=== PATIENT | female | born 1995 | race Caucasian/White ===

== ENCOUNTER 2020-08-21 13:43 | Emergency (ER) | payer OTHER, SELFPAY ==
[2020-08-21 14:40] VITALS: BP 105/63; PULSE 77; RESP 16; TEMP 36.3; O2SAT 98; BMI 25.4
--- NOTE | 2020-08-21 14:53 | XR_ITS ---
EXAMINATION: X-RAY RIGHT FOREARM. RIGHT HAND/WRIST. CLINICAL INFORMATION: Status post wrist injury. Now with pain and swelling. COMPARISON: None TECHNIQUE: AP and lateral views of the right forearm were obtained. FINDINGS: RIGHT HAND/WRIST: There is no visible acute fracture, dislocation or subluxation seen. The radial ulnar carpal joint space is maintained. The soft tissues are normal. RIGHT FOREARM: There is no visible acute fracture, dislocation or subluxation seen. The soft tissues are normal. IMPRESSION: Unremarkable right hand/wrist. Unremarkable right forearm.
--- NOTE | 2020-08-21 15:45 | ED.EXTPRO ---
HPI - Extremity Problem General Chief complaint: Extremity Injury, Upper Stated complaint: wrist injury - work related Time Seen by Provider: 08/21/20 14:43 Source: patient Mode of arrival: ambulatory Limitations: no limitations History of Present Illness HPI Narrative: 25-year-old female presenting to the ED with complaints of right hand/ wrist / forearm pain for the past week worse today. She reports her hand twisted backwards when a door was closing. Patient reports she cannot feel her fingers. Denies any other injuries complaints or concerns at this time. Related Data Allergies Allergy/AdvReac Type Severity Reaction Status Date / Time No Known Allergies Allergy Unverified 07/18/20 16:55 [No Known Allergies*] N.K.D.A. Allergy Unknown Uncoded 10/22/15 00:00 Review of Systems Review of Systems: Musculoskeletal : No Myalgias, + joint pain/swelling Skin : No Skin Lesions, No rash Neuro : No Weakness, + Numbness Yes all other systems are reviewed and are negative [facility] Past Medical History Attestation statement: The following information was validated with the patient. Medical History Anemia Social History Social History Alcohol intake: never Smoking Status: Never smoker Use of substances other than those prescribed or required for medical reasons: Yes Substance Use Type: Marijuana Substance Use Frequency: Daily Last Used Substance: Hours (ago) Advance Directives: No Advance Directives Information Provided: No Physical Exam Vital Signs: Vital Signs: Vital Signs Temp Pulse Resp BP Pulse Ox 08/21/20 14:40 97.3 F 77 16 105/63 98 Body Mass Index 25.4 vital signs have been reviewed as normal and appeared to be correct. Blood pressure normal. Heart rate normal. Respiration rate normal. Temperature normal. Oxygen saturation normal. Appearance: Alert. Oriented X3. No acute distress. Head: Normal external exam. Normocephalic. Atraumatic. No Goldstein signs noted. No raccoon eyes noted Eyes: PERRLA. EOMI. Conjunctiva and sclera normal. Eyelids normal. ENT: EAC normal. TM's Normal. Pharynx normal. Uvula midline. Moist mucous membranes. No trismus noted. No drooling noted. No muffled voice noted. Neck: Normal inspection. Neck supple. FROM. No adenopathy. Thyroid Normal. No meningeal signs. No neck mass noted. CVS: Normal heart rate and rhythm. Heart sound normal. No murmurs noted. Pulses normal throughout. Respiratory: No respiratory distress. Painless inspiration. Breath sounds normal. No wheezes/rales/rhonchi noted. Chest nontender. No accessory muscle usage noted or decreased air movement noted. Abdomen: Soft and nontender. Bowel sounds normal in all 4 quadrants. No distention noted. No organomegaly noted. No visible injury noted. Back: No CVA tenderness. Full range of motion noted. Skin: Skin warm and dry. Normal skin color. Normal skin turgor. No rashes/lesions/lacerations noted. Extremities: Right hand ttp at The anatomical snuffbox along with tender to palpation of the radial aspect of the wrist and the distal aspect of the 4 and with mild soft tissue swelling. No obvious deformities noted. Patient has full range of motion of wrist/elbow and all fingers. No lower extremity edema. All other Extremities exhibit normal range of motion and nontender. Neuro: Oriented X 3. No motor deficit. No sensory deficit. Reflexes normal. Course Course Course Narrative: 25-year-old female presenting to the ED with complaints of right hand/ wrist / forearm pain for the past week worse today. She reports her hand twisted backwards when a door was closing. Patient reports she cannot feel her fingers. Denies any other injuries complaints or concerns at this time. - Patient initially said that she did not feel her fingers once I pulled out an 18 gauge needle for sensation she started saying that she was lying about her not feeling her fingers. - Plan: Xray And re-evaluate. Reevaluation(s) Reevaluation #1: X-ray revealed mild soft tissue swelling otherwise no acute processes noted. Therefore will place in a cock-up splint and instructions to return if any new or worsening symptoms and give symptomatic treatment. Patient understands agrees the plan. Time: 15:52 MDM - Extremity (Nontraumatic) Imaging Data right hand/wrist/forearm: Attestation: I personally reviewed and interpreted this imaging study as follows: Radiologist's impression: FINDINGS: RIGHT HAND/WRIST: There is no visible acute fracture, dislocation or subluxation seen. The radial ulnar carpal joint space is maintained. The soft tissues are normal. RIGHT FOREARM: There is no visible acute fracture, dislocation or subluxation seen. The soft tissues are normal. IMPRESSION: Unremarkable right hand/wrist. Unremarkable right forearm.
== END 2020-08-21 16:40 | disposition home or self-care (01) ==
PROVIDERS: Emergency Provider Emergency Medicine; PCP Internal Medicine
DX: S63.91XA Sprain of unspecified part of right wrist and hand, initial encounter (principal); X50.1XXA Overexertion from prolonged static or awkward postures, initial encounter; Y93.89 Activity, other specified; Y92.9 Unspecified place or not applicable; Y99.0 Civilian activity done for income or pay
CPT/HCPCS: 73090; 73110; 73130; 99283; 99284

== ENCOUNTER 2020-09-07 09:13 | Emergency (ER) | payer OTHER, SELFPAY ==
--- NOTE | 2020-09-07 09:40 | ED.HA ---
HPI - Headache General Chief Complaint: Headache Stated Complaint: headache Time Seen by Provider: 09/07/20 09:40 Source: patient Mode of arrival: ambulatory Limitations: no limitations History of Present Illness MD elicited complaint: headache and migraine Pertinent past history: migraines Onset (ago): hour(s) (few hours upon waking) Onset description: gradually Location: right, facial and retro-orbital Severity: similar to previous episodes Quality & Timing: throbbing Exacerbating factors: light and noise Relieving factors: rest and dark room Context: occurred at rest Associated symptoms: nausea and photophobia Treatments prior to arrival: none Related Data Previous Rx's Medication Instructions Recorded naproxen 500 mg PO BID PRN #10 tab 08/21/20 oxycodone-acetaminophen [Percocet] 1 tab PO Q6H PRN #10 tab 08/21/20 fvdtgrqjkw-dabpjmnhvogvj-zrdl 1 tab PO Q6H PRN #20 tab 09/07/20 cyclobenzaprine 10 mg PO TID PRN #14 tab 09/07/20 ondansetron 4 mg PO Q8H PRN #20 tab 09/07/20 Allergies Allergy/AdvReac Type Severity Reaction Status Date / Time No Known Allergies Allergy Verified 09/07/20 09:47 [No Known Allergies*] Review of Systems Review of Systems: Constitutional : No Fever, No Chills, No Fatigue ENT/Mouth : No sore throat, No Rhinorrhea, no neck pain Eyes: No Eye Pain, No Swelling, No Redness, positive photophobia Cardiovascular : No Chest Pain, No SOB, No Dyspnea on Exertion Respiratory : No Cough, No Sputum Gastrointestinal : pos Nausea, No Vomiting, No Diarrhea, No abdominal Pain Genitourinary : No Dysuria, No Urinary Frequency, No Hematuria, Musculoskeletal : No joint pain, No Myalgias, No Joint Swelling Skin : No Skin Lesions, No rash Neuro : No Weakness, No Numbness, No Dizziness, positive Headache Psych : No Anxiety/Panic, No Depression Heme/Lymph: No Bruising, No Bleeding,No Lymphadenopathy Endocrine : No Polyuria, No Polydipsia All other systems reviewed and are negative [facility] Past Medical History Medical History Anemia Migraines Social History Social History Alcohol intake: current Alcohol intake frequency: does not drink Alcohol type: beer and wine Smoking Status: Never smoker Substance Use Type: Marijuana Advance Directives: No Advance Directives Information Provided: No Physical Exam Vital Signs: Vital Signs: Last Vital Signs Temp 98.1 F 09/07/20 09:43 Pulse 67 09/07/20 09:43 Resp 16 09/07/20 09:43 BP 119/86 09/07/20 09:43 Pulse Ox 100 09/07/20 09:43 Body Mass Index 25.4 Appearance: Alert. Oriented X3. No acute distress. Eyes: Pupils equal, round and reactive to light. + photophobia ENT: Pharynx normal. Ears normal, no sinus ttp Neck: Normal inspection. Neck supple. no meningeal signs CVS: Normal heart rate and rhythm. Pulses normal. Respiratory: No respiratory distress. Breath sounds normal. Abdomen: Soft and nontender. Skin: Skin warm and dry. Normal skin color. Normal skin turgor. Extremities: No lower extremity edema. No calf ttp Neuro: Oriented X 3. No motor deficit. No sensory deficit. Course Course Course Narrative: patient feels better, stable for DC MDM - Headache MDM Narrative Medical decision making narrative: 25 yo female afebrile, no AC therapy, no meningeal signs - hx of heaches here with same presentation, gradual onset doubt SAH/[employer] infection, PO medications, dispo per results and findings. Lab Data Result diagrams: 09/07/20 10:20 Discharge Plan Discharge Clinical Impression: Migraine Qualifiers: Migraine type: without aura Patient Disposition: Home, Self-Care Instructions: Migraine Headache (ED) Additional Instructions: return to ED for any worsening symptoms or concerns Prescriptions: New cyclobenzaprine 10 mg tablet 10 mg PO TID PRN (Reason: muscle spasm) Qty: 14 RF: 0 lgwpacasss-zbrceveqqfimq-tjbi 50-325-40 mg tablet 1 tab PO Q6H PRN (Reason: pain) Qty: 20 RF: 0 ondansetron 4 mg tablet,disintegrating 4 mg PO Q8H PRN (Reason: nausea and vomiting) Qty: 20 RF: 0 No Action oxycodone-acetaminophen [Percocet] 5-325 mg tablet 1 tab PO Q6H PRN (Reason: pain) Qty: 10 RF: 0 naproxen 500 mg tablet 500 mg PO BID PRN (Reason: pain) Qty: 10 RF: 0 Referrals: Balbina Loera MD [Primary Care Provider] - 2 days (if this continues and does not improve)
[2020-09-07 09:43] VITALS: BP 119/86; PULSE 67; RESP 16; TEMP 36.7; O2SAT 100; BMI 25.4
[2020-09-07] MEDS: Cyclobenzaprine HCl 10 MG TABLET PO (09:51)
[2020-09-07 10:44] LABS: Hematocrit 36.7 % (37-47); Hemoglobin 11.7 g/dl (12.0-16.0); Mean Corpuscular HGB Conc 31.9 g/dl (31.0-35.0); Mean Corpuscular Hemoglobin 27.9 pg (27.0-33.0); Mean Corpuscular Volume 87.4 fL (80-98); Mean Platelet Volume 9.5 fL (9.4-12.3); Platelet Count 255 X10*3/uL (160-400); Red Cell Distribution Width 14.3 % (11.0-16.0); White Blood Count 6.5 X10*3/uL (4.8-10.8)
== END 2020-09-07 11:23 | disposition home or self-care (01) ==
PROVIDERS: Emergency Provider Emergency Medicine; PCP Internal Medicine
DX: G43.009 Migraine without aura, not intractable, without status migrainosus (principal); F12.90 Cannabis use, unspecified, uncomplicated; Z79.899 Other long term (current) drug therapy
CPT/HCPCS: 36415; 85027; 99283; 99284

== ENCOUNTER 2020-09-22 12:48 | Emergency (ER) | payer OTHER, SELFPAY ==
[2020-09-22 13:26] VITALS: PULSE 70; RESP 16; TEMP 36.7; O2SAT 100; BMI 25.8
--- NOTE | 2020-09-22 13:26 | ED.GENADULT ---
HPI - General Adult General Chief complaint: General Medical Stated complaint: sore throat Time Seen by Provider: 09/22/20 13:25 Source: patient Mode of arrival: ambulatory Limitations: no limitations History of Present Illness HPI narrative: Here for sore throat/nasal congestion requesting COVID test. Onset (ago): day(s) (1) Severity: mild Treatments prior to arrival: none Related Data Previous Rx's Medication Instructions Recorded naproxen 500 mg PO BID PRN #10 tab 08/21/20 oxycodone-acetaminophen [Percocet] 1 tab PO Q6H PRN #10 tab 08/21/20 ovuuxwkzpk-wpuhkwmvlslgi-qchv 1 tab PO Q6H PRN #20 tab 09/07/20 cyclobenzaprine 10 mg PO TID PRN #14 tab 09/07/20 ondansetron 4 mg PO Q8H PRN #20 tab 09/07/20 Allergies Allergy/AdvReac Type Severity Reaction Status Date / Time No Known Allergies Allergy Verified 09/07/20 09:47 [No Known Allergies*] Review of Systems Review of Systems: Constitutional: No Weight loss, No Fever, No Chills, No Night Sweats, No Fatigue, No Malaise ENT/Mouth: No Hearing loss, No Ear Pain, + Nasal Congestion, No Sinus Pain, No Hoarseness, + sore throat, No Rhinorrhea, No Swallowing Difficulty Eyes: No Eye Pain, No Swelling, No Redness, No Foreign Body, No Discharge, No Vision Changes Cardiovascular: No Chest Pain, No SOB, No Dyspnea on Exertion, No Orthopnea, No Edema, No Palpitations Respiratory: No Cough, No Sputum, No Wheezing, No Smoke Exposure, No Dyspnea Gastrointestinal: No Nausea, No Vomiting, No Diarrhea, No Constipation, No abdominal Pain, No Hematochezia, No Melena Genitourinary: no irregular bleeding, No Dysuria, No Urinary Frequency, No Hematuria, No Urinary Incontinence, No Urgency, No Flank Pain, No Urinary Musculoskeletal: No joint pain, No Myalgias, No Joint Swelling Skin: No Skin Lesions, No rash Neuro: No Weakness, No Numbness, No Paresthesias, No Loss of Consciousness, No Dizziness, No Headache Psych: No Anxiety/Panic, No Depression, No SI/HI/AH/VH, No Social Issues Heme/Lymph: No Bruising, No Bleeding,No Lymphadenopathy Endocrine: No Polyuria, No Polydipsia, No Temperature Intolerance Yes all other systems are reviewed and are negative [facility] Past Medical History Medical History Anemia Migraines Social History Social History Alcohol intake: current Alcohol intake frequency: does not drink Alcohol type: beer and wine Smoking Status: Never smoker Substance Use Type: Marijuana Advance Directives: No Advance Directives Information Provided: Yes Physical Exam Vital Signs: Reviewed Const: General: cooperative and healthy appearing; No acute distress or intoxicated appearing Nutritional Appearance: average body habitus Orientation/consciousness: patient oriented x3 HENMT: Head: Yes normal to inspection Ears: hearing grossly normal bilaterally Eyes: General: appearance normal, both eyes and all related structures Visual Snowden: normal visual snowden by confrontation Neck: Neck: Yes normal visual inspection, No positive Brudzinski's sign, No positive Kernig's sign and No tender Thyroid: Thyroid normal Chest: Chest palpation & inspection: normal inspection of the chest Resp: Effort & Inspection: normal respiratory effort Auscultation: clear to auscultation bilaterally Cardio: Jugular venous distension: no JVD GI: Inspection: Yes normal to inspection Percussion: Yes normal to percussion Auscultation: normal bowel sounds : General: Yes no CVA tenderness Back/Spine/Pelvis: Back: no CVA tenderness Neuro: General: patient oriented x3 Extrem: General: Yes normal to inspection Course Course Course Narrative: Well non toxic. COVID/ rapid strep with plan for d/c with home care/ return and f/u. Work note provided. Discharge Plan Discharge Clinical Impression: Viral syndrome Patient Disposition: Home, Self-Care Instructions: Viral Syndrome (ED) Additional Instructions: Will call you with the strep results The COVID results will take up to 3-4 days will call you with a negative or positive result Remain on work until given negative results in at least 3 days symptom-free Return if any concerns or worsening symptoms Scheduled well visit with her primary care doctor via phone visit in 3-4 days Thank you Prescriptions: No Action oxycodone-acetaminophen [Percocet] 5-325 mg tablet 1 tab PO Q6H PRN (Reason: pain) Qty: 10 RF: 0 naproxen 500 mg tablet 500 mg PO BID PRN (Reason: pain) Qty: 10 RF: 0 cyclobenzaprine 10 mg tablet 10 mg PO TID PRN (Reason: muscle spasm) Qty: 14 RF: 0 nggxyvmwkj-kfiduttkcrzph-pzra 50-325-40 mg tablet 1 tab PO Q6H PRN (Reason: pain) Qty: 20 RF: 0 ondansetron 4 mg tablet,disintegrating 4 mg PO Q8H PRN (Reason: nausea and vomiting) Qty: 20 RF: 0 Referrals: Balbina Loera MD [Primary Care Provider] - 3 days (Phone visit) Stand Alone Forms: Work/School Release
== END 2020-09-22 13:55 | disposition home or self-care (01) ==
PROVIDERS: Nurse Practitioner Primary Care; Emergency Provider Emergency Medicine; PCP Internal Medicine
DX: B34.9 Viral infection, unspecified (principal); J02.8 Acute pharyngitis due to other specified organisms; F12.90 Cannabis use, unspecified, uncomplicated; Z20.828 Contact with and (suspected) exposure to other viral communicable diseases; Z79.899 Other long term (current) drug therapy
CPT/HCPCS: 87071; 87880; 99283; U0003

== ENCOUNTER 2020-11-20 11:12 | Emergency (ER) | payer OTHER, SELFPAY ==
[2020-11-20 11:25] VITALS: BP 108/66; PULSE 70; RESP 18; TEMP 36.6; O2SAT 99; BMI 25.4
--- NOTE | 2020-11-20 11:33 | ECG_ITS ---
Test Reason : GENERAL MEDICAL Blood Pressure : / mmHG Vent. Rate : 064 BPM Atrial Rate : 064 BPM P-R Int : 108 ms QRS Dur : 072 ms QT Int : 426 ms P-R-T Axes : 017 071 029 degrees QTc Int : 439 ms Sinus rhythm with short AK Otherwise normal ECG When compared with ECG of 26-APR-2014 19:06, No significant change was found Referred By: Jamal Guadalupe Electronically Signed By:DANITA HANNAH
--- NOTE | 2020-11-20 11:33 | XR_ITS ---
EXAMINATION: XR CHEST CLINICAL INFORMATION: Chest pain COMPARISON: None TECHNIQUE: Frontal view of the chest was obtained. FINDINGS: The lungs are well-expanded with mild increased bilateral interstitial markings but no confluent infiltrate or pleural effusion. Heart size and pulmonary vascularity is normal. No gross bony abnormality seen. XR/XR chest 1V IMPRESSION: Bilateral prominence of interstitial markings, nonspecific in this time. No acute consolidation.
[2020-11-20 11:49] LABS: Glucose Urine UA NEG (NEG); Leukocyte Esterase Urine NEG (NEG); Nitrite Urine NEG (NEG); Urine Blood 1+ (NEG); Urine Ketones NEG (NEG); Urine Protein NEG (NEG-TRACE)
[2020-11-20 11:50] LABS: Appearance Urine CLEAR; Color Urine YELLOW
[2020-11-20 11:51] LABS: UPreg QC Valid YES; Urine Pregnancy NEGATIVE (NEGATIVE)
[2020-11-20 11:58] LABS: Squamous Epithelial Cell Urine 1+ /LPF; WBC Urine 0-2 /HPF (0-4)
--- NOTE | 2020-11-20 12:51 | ED_ITS ---
HPI - Chest Pain General Chief Complaint: Arrhythmia/Palpitations Stated Complaint: palpitations Time Seen by Provider: 11/20/20 11:32 Source: patient Mode of arrival: ambulatory Limitations: no limitations History of Present Illness HPI narrative: 25-year-old female who reports history of anxiety otherwise denies significant past medical history presents with complaint of chest pain states she has had chest pain ongoing since yesterday states she gets this in the setting of stress and anxiety she has had some increased social stressors at home she has been having more arguments with mom. She denies any suicidal homicidal ideations. Denies any illicit drug use. States she has required pharmacological therapy in the past for her anxiety she does not recall what and she has not been on any medications long-term. No recent travel, no recent sick contacts, no control use. MD complaint: chest discomfort Prior episodes: Yes Onset: other (During emotional upset) Pain location: substernal Pain radiation: none Quality: tightness Relieving factors: nothing Treatment prior to arrival: none Related Data Previous Rx's Medication Instructions Recorded naproxen 500 mg PO BID PRN #10 tab 08/21/20 oxycodone-acetaminophen [Percocet] 1 tab PO Q6H PRN #10 tab 08/21/20 opgmtfagro-bdgdzmywombwa-fvjg 1 tab PO Q6H PRN #20 tab 09/07/20 cyclobenzaprine 10 mg PO TID PRN #14 tab 09/07/20 ondansetron 4 mg PO Q8H PRN #20 tab 09/07/20 hydroxyzine HCl 25 mg PO BID PRN #14 tab 11/20/20 Allergies Allergy/AdvReac Type Severity Reaction Status Date / Time No Known Allergies Allergy Verified 09/07/20 09:47 [No Known Allergies*] Review of Systems Review of Systems: Constitutional: No Weight loss, No Fever, No Chills, No Night Sweats, No Fatigue, No Malaise ENT/Mouth: No Hearing loss, No Ear Pain, No Nasal Congestion, No Sinus Pain, No Hoarseness, No sore throat, No Rhinorrhea, No Swallowing Difficulty Eyes: No Eye Pain, No Swelling, No Redness, No Foreign Body, No Discharge, No Vision Changes Cardiovascular: No Chest Pain, No SOB, No Dyspnea on Exertion, No Orthopnea, No Edema, No Palpitations Respiratory: No Cough, No Sputum, No Wheezing, No Smoke Exposure, No Dyspnea Gastrointestinal: No Nausea, No Vomiting, No Diarrhea, No Constipation, No abdominal Pain, No Hematochezia, No Melena Genitourinary: no irregular bleeding, No Dysuria, No Urinary Frequency, No Hematuria, No Urinary Incontinence, No Urgency, No Flank Pain, No Urinary Flow Changes, No Hesitancy Musculoskeletal: No joint pain, No Myalgias, No Joint Swelling Skin: No Skin Lesions, No rash Neuro: No Weakness, No Numbness, No Paresthesias, No Loss of Consciousness, No Dizziness, No Headache Psych: + Anxiety/Panic, No Depression, No SI/HI/AH/VH, No Social Issues Heme/Lymph: No Bruising, No Bleeding,No Lymphadenopathy Endocrine: No Polyuria, No Polydipsia, No Temperature Intolerance Yes all other systems are reviewed and are negative [facility] Past Medical History Medical History Anemia Migraines Social History Social History Alcohol intake: current Alcohol intake frequency: does not drink Alcohol type: beer and wine Smoking Status: Never smoker Substance Use Type: Marijuana Advance Directives: No Advance Directives Information Provided: No Physical Exam Vital Signs: Vital Signs: Last Vital Signs Temp 98 F 11/20/20 11:25 Pulse 70 11/20/20 11:25 Resp 18 11/20/20 11:25 BP 108/66 11/20/20 11:25 Pulse Ox 99 11/20/20 11:25 Body Mass Index 25.4 Reviewed Const: General: cooperative and healthy appearing; No acute distress or intoxicated appearing Nutritional Appearance: average body habitus Orientation/consciousness: patient oriented x3 HENMT: Head: Yes normal to inspection Ears: hearing grossly normal bilaterally Eyes: General: appearance normal, both eyes and all related structures Visual Snowden: normal visual snowden by confrontation Neck: Neck: Yes normal visual inspection, No positive Brudzinski's sign, No positive Kernig's sign and No tender Thyroid: Thyroid normal Chest: Chest palpation & inspection: normal inspection of the chest Resp: Effort & Inspection: normal respiratory effort Auscultation: clear to auscultation bilaterally Cardio: Jugular venous distension: no JVD Rhythm: regular rhythm Heart sounds: S1 normal heart sound present and S2 normal heart sound present GI: Inspection: Yes normal to inspection Percussion: Yes normal to percussion Auscultation: normal bowel sounds : General: Yes no CVA tenderness Back/Spine/Pelvis: Back: no CVA tenderness Skin: General skin exam: no rashes or lesions noted Neuro: General: patient oriented x3 Extrem: General: Yes normal to inspection Course Course Course Narrative: RN informed me the patient is refusing blood work as she has a needle phobia. I went over to discuss with the patient plans and findings she was initially agreeable to having her blood work given that she is complaining of this chest pain in the setting of anxiety though my suspicion for ca rdiopulmonary disease is low given her symptoms must be ruled out she was again and she is agreeable and after I left the bedside returned she did not want she want to leave. Patient wants leave against medical advise. A MA sign. MDM - Chest Pain Differential Diagnosis Differential diagnosis: Likely stable angina, atypical chest pain, costochondritis and chest pain; Unlikely fracture of rib, pneumothorax, unstable angina pectoris, st elevation myocardial infarction and biliary colic Medical Records Data Attestation: I reviewed the patient's medical records. Lab Data Attestation: I reviewed the patient's lab results. Labs: Lab Results 11/20/20 Range/Units 11:38 Urine Color YELLOW Urine Appearance CLEAR Urine pH 6.0 (5.0-8.0) Ur Specific [place] 1.020 (1.005-1.025) Urine Protein NEG (NEG-TRACE) MG/DL Urine Glucose (UA) NEG (NEG) MG/DL Urine Ketones NEG (NEG) MG/DL Urine Blood 1+ H (NEG) Urine Nitrite NEG (NEG) Ur Leukocyte Esterase NEG (NEG) Urine RBC 1-4 (0) /HPF Urine WBC 0-2 (0-4) /HPF Ur Squamous Epith Cells 1+ /LPF Urine Bacteria NONE /LPF Urine Test NEGATIVE (NEGATIVE) Imaging Data Chest x-ray: Radiologist's impression: [address] [id number] ReportSigned Patient: Poppy Wright#: [id number]: 1995Acct:[id number]/Sex: 25 / FADM Date: 11/20/20Loc: EDAttending Dr: Ordering Physician: Jamal Guadalupe NP Date of Service: 11/20/20 Procedure(s): XR chest 1V Accession Number(s): [id number] cc: Jamal Guadalupe ORDER ADMINISTRATOR~ EXAMINATION: XR CHEST CLINICAL INFORMATION: Chest pain COMPARISON: None TECHNIQUE: Frontal view of the chest was obtained. FINDINGS: The lungs are well-expanded with mild increased bilateral interstitial markings but no confluent infiltrate or pleural effusion. Heart size and pulmonary vascularity is normal. No gross bony abnormality seen. XR/XR chest 1V IMPRESSION: Bilateral prominence of interstitial markings, nonspecific in this time. No acute consolidation. 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 ECG Data ECG #1: Interpretation: Sinus rhythm with short RI Otherwise normal ECG When compared with ECG of 26-APR-2014 19:06, No significant change was found Discharge Plan Discharge Clinical Impression: Anxiety, Chest pain Patient Disposition: Left Against Medical Advice Instructions: Chest Pain (ED), Anxiety (ED) Prescriptions: New hydroxyzine HCl 25 mg tablet 25 mg PO BID PRN (Reason: anxiety) Qty: 14 RF: 0 No Action oxycodone-acetaminophen [Percocet] 5-325 mg tablet 1 tab PO Q6H PRN (Reason: pain) Qty: 10 RF: 0 naproxen 500 mg tablet 500 mg PO BID PRN (Reason: pain) Qty: 10 RF: 0 cyclobenzaprine 10 mg tablet 10 mg PO TID PRN (Reason: muscle spasm) Qty: 14 RF: 0 lkyyehuzob-wuchnjnhsemww-kwpi 50-325-40 mg tablet 1 tab PO Q6H PRN (Reason: pain) Qty: 20 RF: 0 ondansetron 4 mg tablet,disintegrating 4 mg PO Q8H PRN (Reason: nausea and vomiting) Qty: 20 RF: 0 Stand Alone Forms: Against Medical Advice Interventions: ED Discharge Assessment Last Done: 11/20/20 14:12 Discharge Date/Time: 11/20/20 14:13
== END 2020-11-20 14:13 | disposition left against medical advice (07) ==
PROVIDERS: Nurse Practitioner Primary Care; Emergency Provider Emergency Medicine; PCP Internal Medicine
DX: R07.9 Chest pain, unspecified (principal); R00.2 Palpitations; F41.9 Anxiety disorder, unspecified; F43.0 Acute stress reaction; Z63.8 Other specified problems related to primary support group; Z79.899 Other long term (current) drug therapy
CPT/HCPCS: 71045; 81001; 81025; 93005; 99283

== ENCOUNTER 2021-04-08 13:28 | Emergency (ER) | payer OTHER, SELFPAY ==
[2021-04-08 13:42] VITALS: BP 96/64; PULSE 55; RESP 18; TEMP 36.2; O2SAT 95; BMI 56.0
--- NOTE | 2021-04-08 14:47 | ED.LOWEXIN ---
HPI - Extremity Injury (Lower) General Chief Complaint: Extremity Injury, Lower Stated Complaint: R LEG PAIN Time Seen by Provider: 04/08/21 13:50 Source: patient Mode of arrival: ambulatory History of Present Illness HPI Narrative: 26-year-old female with a past medical history of anemia, migraines, presenting to the ED complaining of numb left hamstring pain radiating to the thigh since yesterday s/p doing Thomas. Reports feels like a muscle strain/pulling/tearing. Denies falls/direct trauma, numbness, tingling, urinary incontinence/retention, fever Related Data Previous Rx's Medication Instructions Recorded naproxen 500 mg PO BID PRN #10 tab 08/21/20 oxycodone-acetaminophen [Percocet] 1 tab PO Q6H PRN #10 tab 08/21/20 [id number]-elzclwdxcpcvl-wwvd 1 tab PO Q6H PRN #20 tab 09/07/20 cyclobenzaprine 10 mg PO TID PRN #14 tab 09/07/20 ondansetron 4 mg PO Q8H PRN #20 tab 09/07/20 hydroxyzine HCl 25 mg PO BID PRN #14 tab 11/20/20 acetaminophen [Tylenol Extra 500 mg PO Q6H PRN #20 tab 04/08/21 Strength] cyclobenzaprine 5 mg PO Q8H PRN 5 Days #14 tab 04/08/21 lidocaine [Lidoderm] 1 patch TOPICAL DAILY PRN #30 ea 04/08/21 MDD remove after 12 hours naproxen 500 mg PO BID PRN 10 Days #20 tab 04/08/21 Allergies Allergy/AdvReac Type Severity Reaction Status Date / Time No Known Allergies Allergy Verified 09/07/20 09:47 [No Known Allergies*] Review of Systems Review of Systems: Constitutional: No Fever, No Chills Gastrointestinal: No Abdominal pain Genitourinary: No Urinary Incontinence/retention Musculoskeletal: +joint pain, No Myalgias, No Joint Swelling Skin: No Skin Lesions, No rash Neuro: No Weakness, No Numbness, No Paresthesias Yes all other systems are reviewed and are negative [facility] Past Medical History Attestation statement: The following information was validated with the patient. Medical History Anemia Migraines Social History Social History Alcohol intake: current Alcohol intake frequency: does not drink Alcohol type: beer and wine Substance Use Type: Marijuana Advance Directives: Yes Advance Directives Information Provided: Yes Advance Directives on File: No Patient : No Physical Exam Vital Signs: Vital Signs: Last Vital Signs Temp 97.2 F 04/08/21 13:42 Pulse 55 04/08/21 13:42 Resp 18 04/08/21 13:42 BP 96/64 04/08/21 13:42 Pulse Ox 95 04/08/21 13:42 Body Mass Index 56.0 Const: General: cooperative, healthy appearing and no acute distress Orientation/consciousness: patient oriented x3 Limitations: no limitations HENMT: Head: Yes normal to inspection Ears: hearing grossly normal bilaterally General nose exam: Normal external nose present Face and sinus: Yes normal facial exam Eyes: General: appearance normal, both eyes and all related structures EOM: EOMs intact bilaterally Neck: Neck: Yes normal visual inspection and Yes no meningeal signs Resp: Effort & Inspection: normal respiratory effort Cardio: Rate: regular rate GI: Inspection: Yes normal to inspection Palpation (GI): Soft to palpation, nontender, no guarding and not rigid Skin: Rashes: no rashes Wounds: no wounds Neuro: General: patient oriented x3 and no meningeal signs Gait exam (Neuro): Normal gait present Extrem: Other: Left hamstring with tenderness to palpation. No appreciable deformity. Pain with passive and active ROM. Neurovascularly intact distally. FROM intact General: Yes normal to inspection MDM - Extremity Injury (Lower) MDM Narrative Medical decision making narrative: 26-year-old female with a past medical history of anemia, migraines, presenting to the ED complaining of numb left hamstring pain radiating to the thigh since yesterday s/p doing Thomas. On exam VSS, NAD, well appearing, physical exam as above, consistent with hamstring strain/MSK pain. Discharge Plan Discharge Clinical Impression: Hamstring strain Qualifiers: Encounter type: initial encounter Laterality: left Qualified Code(s): S76.312A - Strain of muscle, fascia and tendon of the posterior muscle group at thigh level, left thigh, initial encounter Patient Disposition: Home, Self-Care Instructions: Hamstring Injury (ED) Additional Instructions: Your pain is likely musculoskeletal Flexeril is a muscle relaxer, take at night as it makes you drowsy, do not drive, drink alcohol, or operate machinery while taking it Naproxen as an anti-inflammatory / pain medication, take with food Lidoderm patches are numbing patches, apply to painful area In addition take Tylenol at home If symptoms persist or worsen, pain becomes unbearable, you developed urinary retention or incontinence, or weakness return to the ED Prescriptions: New acetaminophen [Tylenol Extra Strength] 500 mg tablet 500 mg PO Q6H PRN (Reason: pain or fever) Qty: 20 RF: 0 lidocaine [Lidoderm] 5 % adhesive patch,medicated 1 patch topical DAILY MDD remove after 12 hours PRN (Reason: pain) Qty: 30 RF: 0 naproxen 500 mg tablet 500 mg PO BID PRN (Reason: pain) 10 Days Qty: 20 RF: 0 cyclobenzaprine 5 mg tablet 5 mg PO Q8H PRN (Reason: pain (scale score 7-10)) 5 Days Qty: 14 RF: 0 No Action oxycodone-acetaminophen [Percocet] 5-325 mg tablet 1 tab PO Q6H PRN (Reason: pain) Qty: 10 RF: 0 naproxen 500 mg tablet 500 mg PO BID PRN (Reason: pain) Qty: 10 RF: 0 cyclobenzaprine 10 mg tablet 10 mg PO TID PRN (Reason: muscle spasm) Qty: 14 RF: 0 jsyqqqhjob-rkoctgvuzxwhv-xxnb 50-325-40 mg tablet 1 tab PO Q6H PRN (Reason: pain) Qty: 20 RF: 0 ondansetron 4 mg tablet,disintegrating 4 mg PO Q8H PRN (Reason: nausea and vomiting) Qty: 20 RF: 0 hydroxyzine HCl 25 mg tablet 25 mg PO BID PRN (Reason: anxiety) Qty: 14 RF: 0 Referrals: Balbina Loera MD [Primary Care Provider] - 2 days
== END 2021-04-08 14:58 | disposition home or self-care (01) ==
PROVIDERS: Emergency Provider Emergency Medicine; PCP Internal Medicine
DX: S76.312A Strain of muscle, fascia and tendon of the posterior muscle group at thigh level, left thigh, initial encounter (principal); X50.0XXA Overexertion from strenuous movement or load, initial encounter; Y93.B9 Activity, other involving muscle strengthening exercises; Y92.9 Unspecified place or not applicable; Y99.8 Other external cause status
CPT/HCPCS: 99283

== ENCOUNTER → 2021-05-22 14:24 | Outpatient (BNVA) | payer OTHER, SELFPAY | PROVIDERS: PCP Internal Medicine; Visit Provider Advanced Practice Midwife | DX: Z30.431 Encounter for routine checking of intrauterine contraceptive device (principal); R10.2 Pelvic and perineal pain | CPT/HCPCS: 99212 ==

== ENCOUNTER 2021-06-16 10:20 | Emergency (ER) | payer OTHER, SELFPAY ==
--- NOTE | ~2021-06-16 | XR_ITS ---
EXAMINATION: XR SHOULDER, LEFT CLINICAL INFORMATION: Pain. COMPARISON: None TECHNIQUE: AP, Grashey, and scapular Y views of the left shoulder. FINDINGS: The bones and soft tissues are normal. No fracture. Glenohumeral and acromioclavicular alignment is anatomic with normal joint space. No abnormal soft tissue calcifications. XR/XR shoulder LT min 2V IMPRESSION: Unremarkable examination.
[2021-06-16 10:57] VITALS: BP 102/65; PULSE 60; RESP 16; TEMP 36.7; O2SAT 99; BMI 25.4
--- NOTE | 2021-06-16 17:32 | ED.EXTPRO ---
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 but is not sure, there is no numbness weakness or tingling there is no swelling there is a no neck pain no back pain Related Data Previous Rx's Medication Instructions Recorded acetaminophen 500 mg tablet 500 mg PO Q6H PRN #20 tab 04/08/21 (Tylenol Extra Strength) Allergies Allergy/AdvReac Type Severity Reaction Status Date / Time No Known Allergies Allergy Verified 05/22/21 14:41 [No Known Allergies*] Review of Systems Review of Systems: Positive for left shoulder pain Negatives are no fever no chills no dizziness no weakness no fainting no feeling faint no headache no neck pain no numbness weakness or tingling no chest pain no back pain no skin rash Yes all other systems are reviewed and are negative PMFSH Past Medical History Source: nursing notes reviewed Medical History Anemia Migraines Social History Social History (Updated 05/22/21 @ 14:46 by Fadumo Travis CMA) Alcohol intake: current Alcohol intake frequency: does not drink Alcohol type: beer and wine Substance Use Type: Marijuana Advance Directives: No Advance Directives Information Provided: No Patient : No Gender identity: female Physical Exam Vital Signs: Vital Signs: Last Vital Signs Temp 98.1 F 06/16/21 10:57 Pulse 60 06/16/21 10:57 Resp 16 06/16/21 10:57 BP 102/65 06/16/21 10:57 Pulse Ox 99 06/16/21 10:57 Body Mass Index 25.4 General appearance no acute distress Head is normocephalic atraumatic Neck is supple and nontender The respiratory no distress The extremities the left shoulder had anterior tenderness as well as trapeze tenderness, was normal in appearance there is no redness no warmth no swelling it is neurovascular intact distal range of motion was somewhat limited by pain with mild limited on extension abduction and external rotation Other extremities normal Skin no rash Neuro no focal motor or sensory deficit Course Course Course Narrative: Left shoulder x-ray was negative Patient most likely has muscle strain whether from work or elsewhere and is discharged to follow with orthopedics as needed Discharge Plan Discharge Clinical Impression: Left shoulder strain Patient Disposition: Home, Self-Care Additional Instructions: Your x-ray was negative and most likely of strained muscles in the area of her left shoulder Return any time any worse condition or concern You could use Tylenol or Motrin as needed Prescriptions: No Action acetaminophen [Tylenol Extra Strength] 500 mg tablet 500 mg PO Q6H PRN (Reason: pain or fever) Qty: 20 RF: 0 Referrals: Mitchel Leiva MD [Physician] - 2 days (Left shoulder pain) Stand Alone Forms: Work/School Release Interventions: ED Discharge Assessment Last Done: 06/16/21 12:20 Discharge Date/Time: 06/16/21 12:21
== END 2021-06-16 12:21 | disposition home or self-care (01) ==
PROVIDERS: Emergency Provider Internal Medicine; PCP Internal Medicine
DX: S46.912A Strain of unspecified muscle, fascia and tendon at shoulder and upper arm level, left arm, initial encounter (principal); X50.0XXA Overexertion from strenuous movement or load, initial encounter; Y93.89 Activity, other specified; Y92.511 Restaurant or cafe as the place of occurrence of the external cause; Y99.0 Civilian activity done for income or pay
CPT/HCPCS: 73030; 99283

== ENCOUNTER → 2021-06-17 10:23 | Outpatient (BNVA) | payer OTHER, SELFPAY | PROVIDERS: PCP Internal Medicine; Visit Provider Advanced Practice Midwife ==

== ENCOUNTER 2021-06-26 14:06 | Outpatient (REF) | payer OTHER, SELFPAY ==
[2021-06-26 14:53] LABS: COVID-19 Test Negative (Negative); IDNOW Serial# 9DD0AD1C
== END 2021-06-26 14:07 | disposition home or self-care (01) ==
LOC: HO.LAB 14:06
PROVIDERS: PCP Internal Medicine; Visit Provider Internal Medicine
DX: Z20.822 Contact with and (suspected) exposure to COVID-19 (principal)
CPT/HCPCS: 36415; 87635; C9803

== ENCOUNTER → 2021-09-01 10:12 | Outpatient (BNVA) | payer OTHER, SELFPAY | PROVIDERS: PCP Internal Medicine; Visit Provider Advanced Practice Midwife | DX: Z30.09 Encounter for other general counseling and advice on contraception (principal); T83.9XXA Unspecified complication of genitourinary prosthetic device, implant and graft, initial encounter; Z87.898 Personal history of other specified conditions | CPT/HCPCS: 81025; 99212 ==

== ENCOUNTER 2021-12-25 09:27 | Outpatient (REF) | payer OTHER, SELFPAY | END 2021-12-25 09:28 | disposition home or self-care (01) | LOC: HO.LAB 09:27 | PROVIDERS: PCP Internal Medicine; Visit Provider Advanced Practice Midwife | DX: R10.2 Pelvic and perineal pain (principal); Z20.2 Contact with and (suspected) exposure to infections with a predominantly sexual mode of transmission; T83.9XXA Unspecified complication of genitourinary prosthetic device, implant and graft, initial encounter; Z86.2 Personal history of diseases of the blood and blood-forming organs and certain disorders involving the immune mechanism; Z87.898 Personal history of other specified conditions | CPT/HCPCS: 99212 ==

== ENCOUNTER 2021-12-29 10:01 | Outpatient (REF) | payer OTHER, SELFPAY ==
[2021-12-29 10:59] LABS: Hematocrit 37.7 % (37.0-47.0); Hemoglobin 12.3 g/dl (12.0-16.0); Mean Corpuscular HGB Conc 32.6 g/dl (31.0-35.0); Mean Corpuscular Hemoglobin 29.4 pg (27.0-33.0); Mean Corpuscular Volume 90.2 fL (80.0-98.0); Mean Platelet Volume 9.6 fL (9.4-12.3); Platelet Count 258 X10*3/uL (160-400); Red Blood Count 4.18 X10*6/uL (4.20-5.50); Red Cell Distribution Width 13.3 % (11.0-16.0); White Blood Count 6.1 X10*3/uL (4.8-10.8)
[2021-12-29 11:49] LABS: ~HepC Num1 0.08 S/CO (0.00-0.79); ~Hepatitis C Antibody Nonreactive (Nonreactive)
[2021-12-29 12:02] LABS: HBsAGNum1 0.27 S/CO (0.00-0.99); HIV AB/AG Nonreactive (Nonreactive); HIV Num 1 0.05 S/CO (0.00-0.99); Hepatitis B Surface Antigen Negative (Negative)
[2021-12-29 12:19] LABS: Syphilis Screen Nonreactive (Nonreactive)
[2021-12-29 15:40] LABS: CT PCR NOT DETECTED (Not Detect.); NG PCR NOT DETECTED (Not Detect.)
== END 2021-12-29 10:02 | disposition home or self-care (01) ==
LOC: HO.LAB 10:01
PROVIDERS: PCP Internal Medicine; Visit Provider Advanced Practice Midwife
DX: Z11.4 Encounter for screening for human immunodeficiency virus [HIV] (principal); Z11.3 Encounter for screening for infections with a predominantly sexual mode of transmission; Z20.2 Contact with and (suspected) exposure to infections with a predominantly sexual mode of transmission; Z87.898 Personal history of other specified conditions; Z86.2 Personal history of diseases of the blood and blood-forming organs and certain disorders involving the immune mechanism
CPT/HCPCS: 85027; 86780; 86803; 87340; 87389; 87491; 87591

== ENCOUNTER 2022-03-16 02:16 | Emergency (ER) | payer OTHER, SELFPAY ==
--- NOTE | ~2022-03-16 | XR_ITS ---
EXAMINATION: XR CHEST CLINICAL INFORMATION: Cough COMPARISON: 11/20/2020 TECHNIQUE: Frontal view of the chest was obtained. FINDINGS: The lungs are well expanded. There is no focal consolidation, edema, or effusion. No pneumothorax. The cardiomediastinal silhouette is within normal limits. No acute osseous abnormality. XR/XR chest 1V IMPRESSION: Clear lungs.
[2022-03-16 02:58] VITALS: BP 102/56; PULSE 87; RESP 22; TEMP 36.8; O2SAT 100; BMI 25.4
[2022-03-16 03:25] LABS: COVID-19 Test Negative (Negative); IDNOW Serial# 16C4AD1C; Influenza A Positive (Negative); Influenza B2 Negative (Negative)
--- NOTE | 2022-03-16 06:53 | ED.URI ---
HPI - URI/Sore Throat General Chief Complaint: Upper Respiratory Symptoms Stated Complaint: Sob/Cough Time Seen by Provider: 03/16/22 06:53 Source: patient Mode of arrival: ambulatory Limitations: no limitations History of Present Illness MD elicited complaint: fever, cough and rhinorrhea Onset (ago): day(s) (4) Consistency: constant Severity: moderate Description of mucous: clear Able to tolerate fluids by mouth: Yes Exacerbating factors: exertion Relieving factors: nothing Context: sick contacts Associated symptoms: fever, chills, rhinorrhea and cough Treatments prior to arrival: none Related Data Home Medications Medication Instructions Recorded Confirmed levonorgestrel 20 mcg/24 hours (7 INTRAUTERINE 09/01/21 12/25/21 yrs) 52 mg intrauterine device (Mirena) Previous Rx's Medication Instructions Recorded acetaminophen 500 mg tablet 500 mg PO Q6H PRN #100 tab 12/25/21 (Tylenol Extra Strength) ibuprofen 600 mg tablet 600 mg PO Q6H PRN #100 tab 12/25/21 albuterol sulfate 90 mcg/actuation 2 puff INHALATION QID PRN #6.7 g 03/16/22 aerosol inhaler Allergies Allergy/AdvReac Type Severity Reaction Status Date / Time No Known Allergies Allergy Verified 03/16/22 02:58 [No Known Allergies*] Review of Systems Review of Systems: Constitutional : positive Fever, positive Chills, positive fatigue, positive Malaise ENT/Mouth : no sore throat, positive runny nose Eyes: No Discharge Cardiovascular : No Chest Pain, pos SOB Respiratory : pos Cough, No Sputum Gastrointestinal : No Nausea, No Vomiting, No Diarrhea Genitourinary : No Dysuria, No Urinary Frequency Musculoskeletal : positive Myalgia Skin : No rash Neuro : No Headache PMFSH Past Medical History Attestation statement: The following information was validated with the patient. Medical History Anemia Migraines Social History Social History (Updated 03/16/22 @ 06:59 by Phyllis Carcamo DO) Alcohol intake: current Alcohol intake frequency: does not drink Alcohol type: beer and wine Patient Tobacco Use Status: Current someday Tobacco user Substance Use Type: Marijuana Gender identity: Female Physical Exam Vital Signs: Vital Signs: Last Vital Signs Temp 98.3 F 03/16/22 02:58 Pulse 87 03/16/22 02:58 Resp 22 H 03/16/22 02:58 BP 102/56 L 03/16/22 02:58 Pulse Ox 100 03/16/22 02:58 BMI result Body Mass Index 25.4 Appearance: Alert. Oriented X3. No acute distress. Eyes: Pupils equal, round and reactive to light. ENT: Pharynx normal. Neck: Normal inspection. Neck supple. CVS: Normal heart rate and rhythm. Pulses normal. Respiratory: No respiratory distress. Breath sounds normal. Abdomen: Soft and non-tender. Skin: Skin warm and dry. Normal skin color. Normal skin turgor. Extremities: No lower extremity edema. No calf ttp Neuro: Oriented X 3. No motor deficit. No sensory deficit. MDM - URI/Sore Throat MDM Narrative Medical decision making narrative: 27 yo female no PMH here with c/o fevers, URI symptoms x 4 days - flu + normal VS, clear lungs, negative CXR - out of window for tamiflu will DC home with INH as she is a smoker and at home feels like she is wheezing at this time can be managed as outpatient Lab Data Labs: Lab Results 03/16/22 03/16/22 Range/Units 02:54 02:54 COVID-19 (RIA) Negative (Negative) COVID-19 Clin Com See Note Influenza Type A (RADHA) Positive A (Negative) Influenza Type B (RADHA) Negative (Negative) Influenza A & B Note See Note Discharge Plan Discharge Clinical Impression: Influenza Patient Disposition: Home, Self-Care Instructions: Influenza (ED) Additional Instructions: return to ED for any worsening symptoms or concerns stop smoking Prescriptions: New albuterol sulfate 90 mcg/actuation HFA aerosol inhaler 2 puff inhalation QID PRN (Reason: shortness of breath or wheezing) Qty: 6.7 0RF No Action Mirena 20 mcg/24 hours (7 yrs) 52 mg intrauterine device intrauterine 0RF acetaminophen [Tylenol Extra Strength] 500 mg tablet 500 mg PO Q6H PRN (Reason: pain or fever) Qty: 100 0RF ibuprofen 600 mg tablet 600 mg PO Q6H PRN (Reason: pain) Qty: 100 1RF Rx Instructions: always take w food in stomach Stand Alone Forms: Work/School Release
== END 2022-03-16 07:59 | disposition home or self-care (01) ==
LOC: HO.ED 07:02
PROVIDERS: Emergency Provider Emergency Medicine; PCP Internal Medicine
DX: J10.1 Influenza due to other identified influenza virus with other respiratory manifestations (principal); R06.02 Shortness of breath; R05.9 Cough, unspecified; F17.200 Nicotine dependence, unspecified, uncomplicated; Z20.822 Contact with and (suspected) exposure to COVID-19; Z71.6 Tobacco abuse counseling
CPT/HCPCS: 71045; 87502; 87635; 99283

== ENCOUNTER 2025-01-14 10:33 | Emergency (ER) | payer MEDICAID, SELFPAY ==
--- NOTE | ~2025-01-14 | XR_ITS ---
CLINICAL HISTORY: chest pain 1 view chest x-ray Comparison: CR/SR - XR CHEST 1V - 03/16/22 03:12 EDT Findings: No consolidation or effusion. Normal size heart. No acute fracture. IMPRESSION: 1. No acute cardiopulmonary abnormality. This document has been electronically signed by: Girma Burrell on 01/14/2025 11:37:46
[2025-01-14 10:34] VITALS: BP 100/62; PULSE 74; RESP 16; TEMP 36.6; O2SAT 98; BMI 25.8
--- NOTE | 2025-01-14 10:55 | ECG_ITS ---
Test Reason : CHEST PAIN Blood Pressure : */* mmHG Vent. Rate : 52 BPM Atrial Rate : 52 BPM P-R Int : 110 ms QRS Dur : 76 ms QT Int : 434 ms P-R-T Axes : 25 63 11 degrees QTcB Int : 403 ms Sinus bradycardia with short AL Otherwise normal ECG When compared with ECG of 20-Nov-2020 11:50, T wave amplitude has decreased in Anterolateral leads Referred By: Olvin Pollock Electronically Signed By: Hubert Orellana
--- NOTE | 2025-01-14 11:03 | ED.GENADULT ---
HPI - General Adult General Chief complaint: General Medical Stated complaint: hypotension Time Seen by Provider: 01/14/25 10:45 Source: patient Mode of arrival: ambulatory Limitations: no limitations History of Present Illness HPI narrative: this is a 29 years old the patient presented to the emergency department stating that her blood pressure has been low for about 2 weeks. She is complaining of weakness malaise. She took her blood pressure home with a BP cuff of her mother. No fever no vomiting no diarrhea Onset (ago): week(s) (2) Radiation: non-radiation Severity: moderate Pain Consistency: constant Relieving factors: none Exacerbating factors: none Related Data Home Medications ?Medication ?Instructions ?Recorded ?Confirmed levonorgestrel 21 mcg/24 hr (up to intrauterine 09/01/21 12/25/21 8 years) 52 mg intrauterine device (Mirena) Previous Rx's ?Medication ?Instructions ?Recorded acetaminophen 500 mg tablet 500 mg PO Q6H PRN pain or fever 12/25/21 (Tylenol Extra Strength) #100 tabs ibuprofen 600 mg tablet 600 mg PO Q6H PRN pain #100 tabs 12/25/21 albuterol sulfate 90 mcg/actuation 2 puff inhalation QID PRN 03/16/22 aerosol inhaler shortness of breath or wheezing #6.7 grams Allergies Allergy/AdvReac Type Severity Reaction Status Date / Time No Known Allergies Allergy Verified 01/14/25 10:36 [No Known Allergies*] Review of Systems ENT: Reports system reviewed and no additional complaints, except as documented Cardiovascular: Cardiovascular: Reports no additional cardiovascular complaints Respiratory: Respiratory: Reports no additional respiratory complaints [facility] Past Medical History [facility] Narrative: asthma, anemia, migraine Medical History Migraines Anemia Social History Social History Alcohol intake: current Alcohol intake frequency: does not drink Alcohol type: beer and wine Patient Tobacco Use Status: Current someday Tobacco user Substance Use Type: Marijuana Gender identity: Female Physical Exam ED Vital Signs: Vital Signs - 24 hr 01/14/25 10:34 01/14/25 14:02 01/14/25 15:56 Temperature 97.8 F 97.7 F Pulse Rate 74 56 67 Respiratory Rate 16 16 18 Blood Pressure 100/62 92/52 L 97/43 L Pulse Oximetry 98 100 96 Oxygen Delivery Method Room Air Room Air 01/14/25 16:15 Temperature 97.8 F Pulse Rate 67 Respiratory Rate 18 Blood Pressure 97/43 L Pulse Oximetry 96 Oxygen Delivery Method Room Air BMI result Body Mass Index 25.8 patient looks well she has not toxic Const General: cooperative Nutritional Appearance: well nourished Orientation/consciousness: patient oriented x3 Limitations: no limitations HENMT Head: Yes normal to inspection General nose exam: Normal external nose present Face and sinus: Yes normal facial exam Mouth: Normal oral and palatal mucosa present Neck Neck: Yes normal visual inspection Chest Chest palpation & inspection: normal inspection of the chest Resp Effort & Inspection: normal respiratory effort Auscultation: clear to auscultation bilaterally Cardio Jugular venous distension: no JVD Rate: regular rate Rhythm: regular rhythm GI Inspection: Yes normal to inspection Palpation (GI): Soft to palpation, not firm, nontender and no guarding Auscultation: normal bowel sounds Skin General skin exam: no rashes or lesions noted, elasticity normal and turgor normal Lesions: no lesions Rashes: no rashes Neuro General: patient oriented x3 Cranial nerves: Yes CN's II-XII intact bilaterally Coordination: [id number] test normal Course Reevaluation(s) Reevaluation #1: on re-examination she is doing much better blood pressure okay labs nl anticipate diaharge Time: 14:00 Reevaluation #2: she is feeling better map 73 she has no fever she is not tachycardic she has a normal white count normal chemistry I think she can go home,she can follow up with PCP. Reviewed in the chart her blood pressures are was soft there is a visit 04/08/2021 with a blood pressure 96/64 Time: 16:05 Medications Administered Discontinued Medications Generic Name Dose Route Start Last Admin Trade Name Freq PRN Reason Stop Dose Admin Lactated Ringer's 1,000 mls @ 999 mls/hr 01/14/25 11:00 01/14/25 12:38 Lr IV 01/14/25 12:00 Infused .Q1H1M JACKIE Infusion Sodium Chloride 1,000 mls @ 999 mls/hr 01/14/25 14:15 01/14/25 15:56 Ns IVCONT 01/14/25 15:15 Infused .Q1H1M JACKIE Infusion Ibuprofen 600 mg 01/14/25 16:04 01/14/25 16:18 Ibuprofen 600 Mg Tablet PO 01/14/25 16:05 Not Given ONCE ONE Medical Decision Making Medical Decision Making [facility] Narrative: patient is here reporting low blood pressure we will check labs/UA/hCG @4 PM labs within normal limits including white count, chemistries normal, hCG negative. Map is 73 at this time. I think she can be discharged home she can follow-up with the primary care physician there is no clinical evidence of sepsis no dehydration based on the blood work. She is comfortable with the plan Differential Diagnosis Differential Diagnoses: The differential diagnosis associated with the presentation includes viral syndrome /anemia / ectopic /orthostatic hypotension Admission/Observation Consideration of admission/observation: Escalation of care including admission/observation considered Lab Data MDM Lab Attestation statement: I reviewed the patient's lab results. 01/14/25 11:11 01/14/25 11:11 Labs: Lab Results 01/14/25 Range/Units 11:11 WBC 4.9 (4.8-10.8) X10*3/uL RBC 3.67 L (4.20-5.50) X10*6/uL Hgb 11.2 L (12.0-16.0) g/dl Hct 32.1 L (37.0-47.0) % MCV 87.5 (80.0-98.0) fL MCH 30.5 (27.0-33.0) pg MCHC 34.9 (31.0-35.0) g/dl RDW 13.0 (11.0-16.0) % Plt Count 200 (160-400) X10*3/uL MPV 9.6 (9.4-12.3) fL Immature Gran % (Auto) 0.2 (0.0-0.4) % Neut % (Auto) 54.1 (45-73) % Lymph % (Auto) 38.0 (20-40) % [place] % (Auto) 5.9 (2-11) % Eos % (Auto) 1.4 (0-4) % Baso % (Auto) 0.4 (0-2) % Lymph # (Auto) 1.9 (1.2-4.9) X10*3/uL [place] # (Auto) 0.3 (0.1-1.2) X10*3/uL Eos # (Auto) 0.1 (0.0-0.4) X10*3/uL Baso # (Auto) 0.0 (0.0-0.2) X10*3/uL Abs Immat Gran (auto) 0.01 (0.00-0.03) X10*3/uL Absolute Neuts (auto) 2.7 (2.0-8.3) x10*3/uL Absolute Nucleated RBC 0.000 (0.0-0.012) X10*3/uL Nucleated RBC % (auto) 0.0 (0.0-0.2) /100WBC Sodium 141 (135-145) mmol/L Potassium 4.1 (3.3-5.1) mmol/L Chloride 111 H (96-108) mmol/L Carbon Dioxide 24 (22-29) mmol/L Anion Gap 10 L (12-20) BUN 11 (9-16) mg/dL Creatinine 0.77 (0.5-1.4) mg/dL Estim Creat Clear Calc 86.4 Estimated GFR > 60 Random Glucose 64 (60-115) mg/dL Calcium 9.0 (8.4-10.2) mg/dL Total Bilirubin 0.2 (0.0-1.0) mg/dL AST 21 (5-31) U/L ALT 13 (0-31) U/L Alkaline Phosphatase 62 (39-117) U/L Troponin I High Sens < 2.7 (<3.5-17.0) ng/L Total Protein 7.1 (6.5-8.0) g/dL Albumin 4.1 (3.5-5.0) g/dL Beta HCG, Quant < 2 mIU/mL Urine Color Yellow Urine Appearance Cloudy Urine pH 7.5 (5.0-9.0) Ur Specific [place] 1.010 (1.005-1.025) Urine Protein Negative (Neg-Trace) mg/dL Urine Glucose (UA) Negative (Negative) mg/dL Urine Ketones Negative (Negative) mg/dL Urine Blood Negative (Negative) Urine Nitrite Negative (Negative) Ur Leukocyte Esterase Small (1+) H (Negative) Urine RBC 0-2 (0-2) /HPF Urine WBC 6-10 H (0-5) /HPF Ur Squamous Epith Cells >20 (0-2) /HPF Urine Bacteria None Seen (None Seen) Hyaline Casts 0-2 (0-2) /LPF Urine Opiates Screen Not Detected (Not Detect) Ur Buprenorphine Scrn Not Detected (Not Detect) ng/mL Ur Oxycodone Screen Not Detected (Not Detect) ng/mL Urine Methadone Screen Not Detected (Not Detect) ng/mL Urine Fentanyl Screen Not Detected (Not Detect) Ur Barbiturates Screen Not Detected (Not Detect) Ur Phencyclidine Scrn Not Detected (Not Detect) Ur Amphetamines Screen Not Detected (Not Detect) U Benzodiazepines Scrn Not Detected (Not Detect) Urine Cocaine Screen Not Detected (Not Detect) U Marijuana (THC) Screen POSITIVE H (Not Detect) Independent Interpretation I performed an independent interpretation of an: Plain X-Ray Interpretation: Nad Radiology Impression Discussion of test interpretation with radiology: I have reviewed the radiologist's reading. Radiologist Impression: CLINICAL HISTORY: chest pain 1 view chest x-ray Comparison: CR/SR - XR CHEST 1V - 03/16/22 03:12 EDT Findings: No consolidation or effusion. Normal size heart. No acute fracture. IMPRESSION: 1. No acute cardiopulmonary abnormality. This document has been electronically signed by: Girma Burrell on 01/14/2025 11:37:46 Dictated By: Girma Burrell MD Signed By: <Dimple Discharge Plan Discharge Clinical Impression: Hypotension, chronic Patient Disposition: Home, Self-Care Instructions: Hypotension (ED) Additional Instructions: follow-up with your primary care physician, drink plenty of fluids, your blood work was normal including white count kidney tests. Return to the emergency room though if you feeling any worse any concern Prescriptions: No Action albuterol sulfate 90 mcg/actuation HFA aerosol inhaler 2 puff inhalation QID PRN (Reason: shortness of breath or wheezing) Qty: 6.7 0RF Mirena 20 mcg/24 hours (7 yrs) 52 mg intrauterine device intrauterine acetaminophen [Tylenol Extra Strength] 500 mg tablet 500 mg PO Q6H PRN (Reason: pain or fever) Qty: 100 0RF ibuprofen 600 mg tablet 600 mg PO Q6H PRN (Reason: pain) Qty: 100 1RF Rx Instructions: always take w food in stomach Referrals: Balbina Loera MD [Primary Care Provider] - 1 day Interventions: ED Discharge Assessment Last Done: 01/14/25 16:15 Discharge Date/Time: 01/14/25 16:19 Print Language: Arabic
[2025-01-14] MEDS: Lactated Ringers 1,000 ML 999 ML IV (11:14)
[2025-01-14 11:17] LABS: Appearance Urine Cloudy; Basophils Percent Auto 0.4 % (0-2); Color Urine Yellow; Eosinophils Absolute Auto 0.1 X10*3/uL (0.0-0.4); Eosinophils Percent Auto 1.4 % (0-4); Glucose Urine UA Negative (Negative); Hematocrit 32.1 % (37.0-47.0); Hemoglobin 11.2 g/dl (12.0-16.0); Imm Gran Abs Auto 0.01 X10*3/uL (0.00-0.03); Imm Gran Pct Auto 0.2 % (0.0-0.4); Leukocyte Esterase Urine Small (1+) (Negative); Lymphocytes Absolute Auto 1.9 X10*3/uL (1.2-4.9); MANUAL DIFF FLAG NO; Mean Corpuscular HGB Conc 34.9 g/dl (31.0-35.0); Mean Corpuscular Hemoglobin 30.5 pg (27.0-33.0); Mean Corpuscular Volume 87.5 fL (80.0-98.0); Mean Platelet Volume 9.6 fL (9.4-12.3); Monocytes Absolute Auto 0.3 X10*3/uL (0.1-1.2); Monocytes Percent Auto 5.9 % (2-11); Neutrophils Absolute Auto 2.7 x10*3/uL (2.0-8.3); Neutrophils Percent Auto 54.1 % (45-73); Nitrite Urine Negative (Negative); PH 7.5 (5.0-9.0); Platelet Count 200 X10*3/uL (160-400); Red Blood Count 3.67 X10*6/uL (4.20-5.50); UMIC TRIGGER UACC YES; Urine Blood Negative (Negative); Urine Ketones Negative (Negative); Urine Protein Negative (Neg-Trace); White Blood Count 4.9 X10*3/uL (4.8-10.8)
[2025-01-14 11:22] LABS: Bacteria Urine None Seen (None Seen); Hyaline Casts Urine 0-2 /LPF (0-2); RBC Urine 0-2 /HPF (0-2); Squamous Epithelial Cell Urine >20 /HPF (0-2); UACC Culture Trigger YES
[2025-01-14 11:27] LABS: Amphetamine Screen Urine Not Detected (Not Detect); Barbiturates, Urine Not Detected (Not Detect); Benzodiazepines Screen Urine Not Detected (Not Detect); Buprenorphine Scr Not Detected (Not Detect); Cannabinoid Screen Urine POSITIVE (Not Detect); Cocaine Screen Urine Not Detected (Not Detect); Fentanyl, urine Not Detected (Not Detect); Methadone Screen, Urine Not Detected (Not Detect); Opiate Screen Urine Not Detected (Not Detect); Oxycodone Screen Urine Not Detected (Not Detect); Phencyclidine Screen Urine Not Detected (Not Detect)
[2025-01-14 11:49] LABS: Alanine Aminotransferase 13 U/L (0-31); Albumin Level 4.1 g/dL (3.5-5.0); Alkaline Phosphatase 62 U/L (39-117); Anion Gap 10 (12-20); Aspartate Amino Transferase 21 U/L (5-31); Bilirubin Total 0.2 mg/dL (0.0-1.0); Blood Urea Nitrogen 11 mg/dL (9-16); Carbon Dioxide 24 mmol/L (22-29); Chloride 111 mmol/L (96-108); Creatinine Clr Calc Pharmacy 86.4; Estimated Glomerular Filt Rate > 60; Glucose Random 64 mg/dL (60-115); HCG Quantitative < 2 mIU/mL; Potassium 4.1 mmol/L (3.3-5.1); Sodium 141 mmol/L (135-145); Total Protein 7.1 g/dL (6.5-8.0); Troponin-I High Sensitivity < 2.7 ng/L (<3.5-17.0)
[2025-01-14 14:02] VITALS: BP 92/52; PULSE 56; RESP 16; TEMP 36.5; O2SAT 100
[2025-01-14] MEDS: 0.9 % Sodium Chloride 1,000 ML 999 ML IVCONT (14:11)
[2025-01-14 15:56] VITALS: BP 97/43; PULSE 67; RESP 18; O2SAT 96
[2025-01-14 16:15] VITALS: BP 97/43; PULSE 67; RESP 18; TEMP 36.6; O2SAT 96
--- NOTE | 2025-01-14 16:18 | PC.NURSE ---
pt refused ibuprofen prior to d/c.
== END 2025-01-14 16:19 | disposition home or self-care (01) ==
PROVIDERS: Emergency Provider Emergency Medicine; PCP Internal Medicine
DX: I95.9 Hypotension, unspecified (principal); R00.1 Bradycardia, unspecified; R53.81 Other malaise; D50.9 Iron deficiency anemia, unspecified; F17.200 Nicotine dependence, unspecified, uncomplicated; F12.90 Cannabis use, unspecified, uncomplicated; Z79.899 Other long term (current) drug therapy
CPT/HCPCS: 36415; 71045; 80053; 80307; 81001; 84484; 84702; 85025; 87086; 93005; 96360; 96361; 99284; 99285; J7120

== ENCOUNTER → 2025-01-14 10:55 | Outpatient (BNV) | payer MEDICAID, SELFPAY | PROVIDERS: Emergency Provider Emergency Medicine; PCP Internal Medicine; Visit Provider Internal Medicine Cardiovascular Disease | DX: R07.9 Chest pain, unspecified (principal) | CPT/HCPCS: 93010 ==

== ENCOUNTER → 2025-01-14 10:55 | Outpatient (BNV) | payer OTHER, SELFPAY | PROVIDERS: Emergency Provider Emergency Medicine; PCP Internal Medicine; Visit Provider Radiology Vascular & Interventional Radiology | DX: R07.9 Chest pain, unspecified (principal) | CPT/HCPCS: 71045 ==

== ENCOUNTER 2025-02-02 12:32 | Outpatient (REF) | payer OTHER, SELFPAY ==
[2025-02-02 13:26] LABS: MANUAL DIFF FLAG NO
[2025-02-02 13:36] LABS: Basophils Percent Auto 0.1 % (0-2); Eosinophils Percent Auto 0.6 % (0-4); Hematocrit 34.6 % (37.0-47.0); Hemoglobin 11.4 g/dl (12.0-16.0); Imm Gran Abs Auto 0.02 X10*3/uL (0.00-0.03); Imm Gran Pct Auto 0.3 % (0.0-0.4); Lymphocytes Percent Auto 14.2 % (20-40); Mean Corpuscular HGB Conc 32.9 g/dl (31.0-35.0); Mean Corpuscular Hemoglobin 29.9 pg (27.0-33.0); Mean Corpuscular Volume 90.8 fL (80.0-98.0); Mean Platelet Volume 9.5 fL (9.4-12.3); Monocytes Absolute Auto 0.4 X10*3/uL (0.1-1.2); Monocytes Percent Auto 6.3 % (2-11); Neutrophils Absolute Auto 5.3 x10*3/uL (2.0-8.3); Neutrophils Percent Auto 78.5 % (45-73); Platelet Count 213 X10*3/uL (160-400); Red Blood Count 3.81 X10*6/uL (4.20-5.50); Red Cell Distribution Width 13.2 % (11.0-16.0); White Blood Count 6.7 X10*3/uL (4.8-10.8)
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
--- OUTSIDE RECORDS SUMMARY | 2025-02-02 14:24 | XMS_ITS | Encounter Summary ---
Author Organization [facility] Address [address] [facility] [address] [place] [address] Care Team Providers Care Manager Van Name Role Phone Unavailable Primary Care Provider Unavailabl e Reason for Visit * Reason Comments intermittent chest pain Appears, pwd, na d: scrolling on phone laughingWas yelling ar staff at front counter clerk Cough Sore Throat Encounter Details Date Type Department Care Team (Late st Contact Info) Description 02/02/2025 1:00 PM EDT Office Visit [facility] [address] [place] [address] Chest pain on breathing (Primary Dx); Mild intermittent asthma, unspecified whether complicated Social History Tobacco Use Types Packs/Day Years Used Date Smoking Tobacco: Never Smokeless Tobacco: Never Comments Unknown Sex and Gender Information Value Date Recorded Sex Assigned at Female 08/31/2022 10:17 AM EDT Legal Sex Female 10:17 AM EDT Gender Identity Female 08/31/2022 10:17 AM EDT Sexual Orientation Straight 09/02/2022 4: 12 PM EDT Sexual Orientation Lesbian or Young 09/02/2022 4: 12 PM EDT documented as of this encounter Last Filed Vital Signs Vital Sign Reading Time Taken Comments Blood Pressure 130/96 02/02/2025 11:53 AM EDT Pulse 98 02/02/2025 11:53 AM EDT Temperature 36.7 ??C (98.1 ??F) 02/02/2025 11:53 AM E DT Respiratory Rate 20 02/02/2025 11:53 AM EDT Oxygen Saturation 96% 02/02/2025 11:53 AM EDT Inhaled Oxygen Concentration - - Weight - - Height - - Body Mass Index - - documented in this encounter Plan of Treatment Upcoming Encounters Date Type Department Care Team (Late st Contact Info) Description 02/05/2025 2:00 PM EDT Office Visit [facility] [address] [place] [address] Shiela Jewell DMD Scheduled Orders Name Type Priority Associated Diagnoses Orde r Schedule High Sensitivity Troponin I Lab STAT Chest pain on breathing Expected: 02/02/2025, Expires: 02/02/2026 D-Dimer, Quantitative Lab STAT Chest pain on breathing Expected: 02/02/2025 (Approximate), Expires: 02/02/2026 Comprehensive Metabolic Panel Lab STAT Chest pain on breathing Expected: 02/02/2025 (Approximate), Expires: 02/02/2026 ECG 12 lead ECG Routine Chest pain on breathing Ordered: 02/02/2025 documented as of this encounter Procedures Procedure Name Priority Date/Time Associated Diagnosis Comments CBC WITH AUTO DIFFERENTIAL STAT 02/02/2025 12:34 PM EDT Chest pain on breathing POCT INFLUENZA B (ID NOW RAPID MOLECULAR) Routine 02/02/2025 12:17 PM EDT Mild intermittent asthma, unspecified whether complicated POCT INFLUENZA A (ID NOW RAPID MOLECULAR) Routine 02/02/2025 12:17 PM EDT Mild intermittent asthma, unspecified whether complicated POCT RAPID COVID ANTIGEN Routine 02/02/2025 12:17 PM EDT Mild intermittent asthma, unspecified whether complicated POCT RAPID STREP A Routine 02/02/2025 12 :17 PM EDT Mild intermittent asthma, unspecified whether complicated documented in this encounter Results * (ABNORMAL) CBC auto differential (02/02/2025 12:34 PM EDT) White Blood Count 6.7 4.8 - 10.8 X10*3/uL [facility] Red Blood Count 3.81(L) 4.20 - 5.50 X10*6/uL [facility] Hemoglobin 11.4(L) 12.0 - 16.0 g/dl [facility] Hematocrit 34.6(L) 37.0 - 47.0 % [facility] Mean Corpuscular Volume 90.8 80.0 - 98.0 fL [facility] Mean Corpuscular Hemoglobin 29.9 27.0 - 33.0 pg [facility] Mean Corpuscular HGB Conc 32.9 31.0 - 35.0 g/dl [facility] Red Cell Distribution Width 13.2 11.0 - 16.0 % [facility] Platelet Count 213 160 - 400 X10*3/uL [facility] Mean Platelet Volume 9.5 9.4 - 12.3 fL [facility] Neutrophils Percent Auto 78.5(H) 45 - 73 % [facility] Imm Gran Pct Auto 0.3 0.0 - 0.4 % [facility] Lymphocytes Percent Auto 14.2(L) 20 - 40 % [facility] Monocytes Percent Auto 6.3 2 - 11 % [facility] Eosinophils Percent Auto 0.6 0 - 4 % [facility] Basophils Percent Auto 0.1 0 - 2 % [facility] NRBC Pct Auto 0.0 0.0 - 0.2 /100WBC [facility] Neutrophils Absolute Auto 5.3 2.0 - 8.3 x10*3/uL [facility] Imm Gran Abs Auto 0.02 0.00 - 0.03 X10*3/uL [facility] Lymphocytes Absolute Auto 1.0(L) 1.2 - 4.9 X10*3/uL [facility] Monocytes Absolute Auto 0.4 0.1 - 1.2 X10*3/uL [facility] Eosinophils Absolute Auto 0.0 0.0 - 0.4 X10*3/uL [facility] Basophils Absolute Auto 0.0 0.0 - 0.2 X10*3/uL [facility] NRBC Abs Auto 0.000 0.0 - 0.012 X10*3/uL [facility] Blood Venous blood specimen / Unknown 02/02/2025 12:34 PM EDT 02/02/2025 1:21 PM EDT Rebekah Powers MD LAB BLOOD ORDERABLES Final Res ult [facility] [address] [place] [phone] * POCT rapid strep A manually resulted (02/02/2025 12:17 PM EDT) [facility] Rapid Strep A Screen Negative Negative, None Detected Swab 02/02/2025 12:1 7 PM EDT Rebekah Powers MD POINT OF CARE TEST ENTER/EDIT ORDERABLES Final Result * POCT Rapid COVID Ag (02/02/2025 12:17 PM EDT) [facility] Rapid COVID Ag Negative Swab 02/02/2025 12:1 7 PM EDT Rebekah Powers MD POINT OF CARE TEST ENTER/EDIT ORDERABLES Final Result * Influenza A (ID NOW Rapid Molecular) (02/02/2025 12:17 PM EDT) [facility] Influenza A Negative Negative, Indeterminate [facility] Swab 02/02/2025 12:1 7 PM EDT Rebekah Powers MD POINT OF CARE TEST ENTER/EDIT ORDERABLES Final Result Performing Organization Address [facility]/ZIP Co de Phone Number [facility] [address] [place] [phone] * Influenza B (ID NOW Rapid Molecular) (02/02/2025 12:17 PM EDT) [facility] Influenza B Negative Negative, Indeterminate [facility] Swab 02/02/2025 12:1 7 PM EDT Rebekah Powers MD POINT OF CARE TEST ENTER/EDIT ORDERABLES Final Result [facility] [address] [place] [phone] documented in this encounter Visit Diagnoses Diagnosis Chest pain on breathing- Primary Painful respiration Mild intermittent asthma, unspecified whether complicated documented in this encounter
--- OUTSIDE RECORDS SUMMARY | 2025-02-02 14:24 | XMS_ITS | Encounter Summary ---
Author Organization [email or web address] Address [address] [place] [address] Care Team Providers Care Environmental Consultant Name Role Phone Unavailable Primary Care Provider Unavailabl e Reason for Visit * Reason Onset Date Comments unable to post insurance 01/11/2025 Encounter Details Date Type Department Care Team (Late st Contact Info) Description 01/11/2025 Telephone [facility] [address] [place] [address] Aron Gonzalez DMD [address] [place] [address] unable to post insurance Social History Tobacco Use Types Packs/Day Years [...] PM EDT documented as of this encounter Miscellaneous Notes * Telephone Encounter - Shania Maya - 01/11/2025 11:05 AM EDT Patient is coming in for 11:30 emergency appt unable to post portal not running [facility] documented in this encounter Plan of Treatment Upcoming Encounters Date Type Department Care Team (Late st Contact Info) Description 02/05/2025 2:00 PM EDT Office Visit [facility] ADULT [facility] [address] [place] [address] Best, Shiela, DMD documented as of this encounter Visit Diagnoses Not on filedocumented in this encounter
--- OUTSIDE RECORDS SUMMARY | 2025-02-02 14:24 | XMS_ITS | Clinical Summary ---
Author Organization [facility] Address [address] [place] [address] Care Team Providers Care Right Of Way Maintenance Supervisor Name Role Phone Unavailable Primary Care Provider Unavailabl e Allergies No known active allergies Medications budesonide-formo terol (Symbicort) 160-4.5 MCG/ACT inhalerIndicatio ns:Mild intermittent asthma, unspecified whether complicated Inhale 2 puffs in the morning and at bedtime. Rinse mouth with water after use to reduce aftertaste and incidence of candidiasis. Do not swallow. 1 each 11 5 02/03/20 26 Active predniSONE (Deltasone) 20 MG tabletIndication s:Mild intermittent asthma, unspecified whether complicated Take 2 tablets (40 mg) by mouth Once per day for 5 days. 10 tablet 5 02/08/20 25 Active amoxicillin (Amoxil) 500 MG capsule Take 1 capsule (500 mg) by mouth every 8 (eight) hours for 7 days. 21 capsule 5 01/19/20 25 ibuprofen 800 MG tablet Take 1 tablet (800 mg) by mouth if needed in the morning, at noon, and at bedtime for mild pain or moderate pain for up to 5 days. 15 tablet 5 01/17/20 25 chlorhexidine (Peridex) 0.12 % solution Use 15 mL in the mouth or throat if needed in the morning, at noon, and at bedtime (PROPHYLAXIS) for up to 5 days. 110 mL 5 01/17/20 25 Active Problems Problem Noted Date Diagnosed Date Mild recurrent major depression 02/02/2025 Constipation 02/02/2025 Absolute anemia 02/02/2025 Anxiety 01/11/2025 Asthma 01/11/2025 Encounters Date Type Department Care Team Description 02/02/2025 1:00 PM EDT Office Visit [facility] [address] [place] [address] Chest pain on breathing (Primary Dx); Mild intermittent asthma, unspecified whether complicated 01/11/2025 11:30 AM EDT Office Visit [facility] ADULT DENTAL [address] [place] [address] Aron Gonzalez DMD Mild intermittent asthma, unspecified whether complicated (Primary Dx) 01/11/2025 Telephone [facility] MEDICINE [address] [place] [phone] Tien Rivas MD 01/11/2025 Telephone [facility] ADULT D[facility] [address] [place] [phone] Aron Gonzalez DMD unable to post insurance 01/10/[address] [phone] Tien Rivas MD from Last 3 Months Immunizations Name Administration Dates Next Due Influenza Injectable Quadriv alant Preservative Free IIV4 MDCK 04/14/2022 Influenza injectable quadrivalent preservative f ree 08/15/2017 Td (adult), 5 Lf tetanus tox oid, preservative free, adsorbed 06/24/2013 Tdap 07/12/2017 Social History Tobacco Use Types Packs/Day Years Used Date Smoking Tobacco: Never Smokeless Tobacco: Never Tobacco Cessation:Counseling Given: Not Answered Comments Unknown Sex and Gender Information Value Date Recorded Sex Assigned at Female 08/31/2022 10:17 AM EDT Legal Sex Female 10:17 AM EDT Gender Identity Female 08/31/2022 10:17 AM EDT Sexual Orientation Straight 09/02/2022 4: 12 PM EDT Sexual Orientation Lesbian or Young 09/02/2022 4: 12 PM EDT Last Filed Vital Signs Vital Sign Reading Time Taken Comments Blood Pressure 130/96 02/02/2025 11:53 AM EDT Pulse 98 02/02/2025 11:53 AM EDT Temperature 36.7 ??C (98.1 ??F) 02/02/2025 11:53 AM E DT Respiratory Rate 20 02/02/2025 11:53 AM EDT Oxygen Saturation 96% 02/02/2025 11:53 AM EDT Inhaled Oxygen Concentration - - Weight 67.4 kg (148 lb 9.6 oz) 01/07/2021 12:03 AM EST Height - - Body Mass Index - - Plan of Treatment Upcoming Encounters Date Type Department Care Team (Late st Contact Info) Description 02/05/2025 2:00 PM EDT Office Visit [facility] ADULT DENTAL [address] [place] [address] Shiela Jewell DMD Health Maintenance Due Date Last Done Comments Depression Screening 1994 HIV Screening 1994 SDOH Screening 1994 Alcohol/Substance Use Screening 2006 Family Planning (PISQ) 2009 Hepatitis C Screening 02/20/2012 Hepatitis B Vaccines (1 of 3 - 19+ 3-dose series) 2013 Pneumococcal Vaccine: Pediatrics (0 to 5 Years) and At-Risk Patients (6 to 49) Years) (1 of 2 - PCV) 2013 Pap Smear 2015 Dental Prophylaxis 05/13/2015 11/12/2014, 02/07/2014 Dental Oral Exam 11/10/2015 05/09/2015, 11/12/2014, 02/07/2014 Dental X-Ray: Bitewings 05/10/2016 05/09/20 15, 11/12/2014 Cervical Cancer Screening 02/20/2024 HPV/Cotest 02/20/2024 Dental X-Ray: Full Mouth 05/22/2024 021, 10/02/2014 COVID-19 Vaccine ( - 2023-2 5 season) 2024 12/31/2021, 12/10/2021 Influenza Vaccine (#1) 2024 2, 08/15/2017 Tobacco Screening 02/02/2026 02/02/2025 DTaP/Tdap/Td Vaccines (2 - T d or Tdap) 07/12/2027 07/12/2017, 06/24/2013 Zoster Vaccines (1 of 2) 02/20/2044 RSV Patients and Patients Aged 60 years or older (1 - 1-dose 75+ series) 2069 HIB Vaccines Aged Out No longer eligi [...] patient's age to complete this topic Meningococcal Vaccine Aged Out No stewart mildred eligible based on patient's age to complete this topic RSV under 20 months Aged Out No longe r eligible based on patient's age to complete this topic Rotavirus Vaccines Aged Out No longer eligible based on patient's age to complete this topic Procedures Procedure Name Priority Date/Time Associated Diagnosis Comments CBC WITH AUTO DIFFERENTIAL STAT 02/02/2025 12:34 PM EDT Chest pain on breathing POCT RAPID STREP A Routine 02/02/2025 12 :17 PM EDT Mild intermittent asthma, unspecified whether complicated POCT RAPID COVID ANTIGEN Routine 02/02/2025 12:17 PM EDT Mild intermittent asthma, unspecified whether complicated POCT INFLUENZA A (ID NOW RAPID MOLECULAR) Routine 02/02/2025 12:17 PM EDT Mild intermittent asthma, unspecified whether complicated POCT INFLUENZA B (ID NOW RAPID MOLECULAR) Routine 02/02/2025 12:17 PM EDT Mild intermittent asthma, unspecified whether complicated CASE PRESENTATION, DETAILED AND EXTENSIVE TREATMENT PLANNING Routine 01/11/2025 11:30 AM EDT INTRAORAL - PERIAPICAL FIRST RADIOGRAPHIC IMAGE Routine 01/11/2025 11:30 AM EDT PALLIATIVE (EMERGENCY) TREATMENT OF DENTAL PAIN - MINOR PROCEDURE Routine 01/11/2025 11:30 AM EDT PANORAMIC RADIOGRAPHIC IMAGE Routine 05/21/2021 12:00 AM EDT BITEWINGS - 4 RADIOGRAPHIC IMAGES Routine 05/09/2015 12:00 AM EDT PERIODIC ORAL EVALUATION - ESTABLISHED PATIENT Routine 05/09/2015 12:00 AM EDT PROPHYLAXIS - ADULT Routine 11/12/2014 1 2:00 AM EST from Last 3 Months or Most Recently Relevant to Health Maintenance Results * (ABNORMAL) CBC auto differential (02/02/2025 12:34 PM EDT) White Blood Count 6.7 4.8 - 10.8 X10*3/uL [facility] Red Blood Count 3.81(L) 4.20 - 5.50 X10*6/uL [facility] Hemoglobin 11.4(L) 12.0 - 16.0 g/dl [facility] Hematocrit 34.6(L) 37.0 - 47.0 % [facility] Mean Corpuscular Volume 90.8 80.0 - 98.0 fL [facility] Mean Corpuscular Hemoglobin 29.9 27.0 - 33.0 pg [facility] Mean Corpuscular HGB Conc 32.9 31.0 - 35.0 g/dl [facility] Red Cell Distribution Width 13.2 11.0 - 16.0 % [facility] Platelet Count 213 160 - 400 X10*3/uL [facility] Mean Platelet Volume 9.5 9.4 - 12.3 fL [facility] Neutrophils Percent Auto 78.5(H) 45 - 73 % [facility] Imm Gran Pct Auto 0.3 0.0 - 0.4 % [facility] Lymphocytes Percent Auto 14.2(L) 20 - 40 % [facility] Monocytes Percent Auto 6.3 2 - 11 % [facility] Eosinophils Percent Auto 0.6 0 - 4 % [facility] Basophils Percent Auto 0.1 0 - 2 % [facility] NRBC Pct Auto 0.0 0.0 - 0.2 /100WBC [facility] Neutrophils Absolute Auto 5.3 2.0 - 8.3 x10*3/uL [facility] Imm Gran Abs Auto 0.02 0.00 - 0.03 X10*3/uL [facility] Lymphocytes Absolute Auto 1.0(L) 1.2 - 4.9 X10*3/uL [facility] Monocytes Absolute Auto 0.4 0.1 - 1.2 X10*3/uL [facility] Eosinophils Absolute Auto 0.0 0.0 - 0.4 X10*3/uL [facility] Basophils Absolute Auto 0.0 0.0 - 0.2 X10*3/uL [facility] NRBC Abs Auto 0.000 0.0 - 0.012 X10*3/uL [facility] Blood Venous blood specimen / Unknown 02/02/2025 12:34 PM EDT 02/02/2025 1:21 PM EDT Rebekah Powers MD LAB BLOOD ORDERABLES Final Res ult [facility] [address] [place] [phone] * Influenza B (ID NOW Rapid Molecular) (02/02/2025 12:17 PM EDT) [facility] Influenza B Negative Negative, Indeterminate [facility] Swab 02/02/2025 12:1 7 PM EDT Rebekah Powers MD POINT OF CARE TEST ENTER/EDIT ORDERABLES Final Result Performing Organization Address [facility]/ZIP Co de Phone Number [facility] [address] [place] [phone] * Influenza A (ID NOW Rapid Molecular) (02/02/2025 12:17 PM EDT) [facility] Influenza A Negative Negative, Indeterminate [facility] Swab 02/02/2025 12:1 7 PM EDT Rebekah Powers MD POINT OF CARE TEST ENTER/EDIT ORDERABLES Final Result Performing Organization Address [facility] Co de Phone Number [facility] [address] [place] [phone] * POCT Rapid COVID Ag (02/02/2025 12:17 PM EDT) [facility] Rapid COVID Ag Negative Swab 02/02/2025 12:1 7 PM EDT Rebekah Powers MD POINT OF CARE TEST ENTER/EDIT ORDERABLES Final Result * POCT rapid strep A manually resulted (02/02/2025 12:17 PM EDT) Rapid Strep A Screen Negative Negative, None Detected Swab 02/02/2025 12:1 7 PM EDT Rebekah Powers MD POINT OF CARE TEST ENTER/EDIT ORDERABLES Final Result from Last 3 Months Insurance [facility] C3 DENTAL-[facility] MEDICAID STAND ADULT
[2025-02-02 14:50] LABS: Alanine Aminotransferase 34 U/L (0-31); Albumin Level 4.6 g/dL (3.5-5.0); Alkaline Phosphatase 80 U/L (39-117); Anion Gap 9 (12-20); Aspartate Amino Transferase 41 U/L (5-31); Bilirubin Total 0.3 mg/dL (0.0-1.0); Blood Urea Nitrogen 11 mg/dL (9-16); Calcium 9.5 mg/dL (8.4-10.2); Carbon Dioxide 24 mmol/L (22-29); Chloride 108 mmol/L (96-108); Estimated Glomerular Filt Rate > 60; Glucose Random 77 mg/dL (60-115); Potassium 4.2 mmol/L (3.3-5.1); Sodium 137 mmol/L (135-145); Total Protein 7.7 g/dL (6.5-8.0)
[2025-02-02 14:56] LABS: Troponin-I High Sensitivity < 2.7 ng/L (<3.5-17.0)
== END 2025-02-02 12:33 | disposition home or self-care (01) ==
LOC: HO.HHCL 12:32
PROVIDERS: Visit Provider General Practice
DX: R07.1 Chest pain on breathing (principal)
CPT/HCPCS: 36415; 80053; 84484; 85025

== ENCOUNTER 2025-02-07 09:38 | Outpatient (REF) | payer OTHER, SELFPAY ==
--- NOTE | ~2025-02-07 | XR_ITS ---
EXAMINATION: XR CHEST 2 VIEWS HISTORY: CP x one week COMPARISON: Comparison is made with the prior examination dated 01/14/2025. FINDINGS: PA and lateral views of the chest are submitted. The lungs are expanded and clear. There is no pleural effusion, pneumothorax, or pulmonary vascular congestion. The heart is normal in size. The bones are intact. XR/XR chest 2V IMPRESSION: No acute cardiopulmonary abnormality. Electronically signed by: Sebastian Venegas MD 02/07/2025 10:02 AM EDT
--- OUTSIDE RECORDS SUMMARY | 2025-02-07 10:29 | XMS_ITS | Encounter Summary ---
Author Organization [facility] Address [address] [place] [address] Care Team Providers Care Clinical Research Director Name Role Phone Unavailable Primary Care Provider Unavailabl e Reason for Visit * Reason Comments intermittent chest pain Appears, pwd, na d: scrolling on phone laughingWas yelling ar staff at front office assistant Cough Sore Throat Encounter Details Date Type Department Care Team (Late st Contact Info) Description 02/02/2025 1:00 PM EDT Office Visit [facility] [address] [place] [address] Rebekah Powers MD [address] [place] [address] Mild intermittent asthma, unspecified whether complicated (Primary Dx); Chest pain on breathing Social History Tobacco Use Types Packs/Day Years [...] Index - - documented in this encounter Progress Notes * Rebekah Powers MD - 02/02/2025 1:00 PM EDT Images from the original note were not included. SUBJECTIVE: Reyna Wright is a 29 y.o. female who presents for acute visit. Denies recent illness, ER visit, or hospitalization. Acute Concerns: 29yo F with one day of crushing chest pain, she rates it a 10/10 and she notes that when she coughsor learns forward it is more painful. She has been using her medications for her asthma, Albuterol pump and nebulizer twice a day in the past day. She has body aches, headache as well. No fever or chills. No recent surgeries, last IUD removal in Aug 2024 under anesthesia Not taking any hormonal control. COVID NEG FLU NEG STREP NEG Patient Active Problem List Diagnosis Anxiety Asthma Mild recurrent major depression (CMS/HCC) Constipation Absolute anemia History reviewed. No pertinent surgical history. No family history on file. Social History Social History Narrative Not on file Review of Systems Constitutional: Negative. HENT: Positive for sore throat. Negative for congestion. Respiratory: Positive for cough and shortness of breath. Negative for choking. Cardiovascular: Positive for chest pain. Negative for palpitations and leg swelling. Gastrointestinal: Negative. Musculoskeletal: Negative. Skin: Negative. OBJECTIVE: Vitals: 02/02/25 1153 BP: (!) 130/96 BP Location: Left arm Patient Position: Sitting BP Cuff Size: Adult Pulse: 98 Resp: 20 Temp: 98.1 ??F (36.7 ??C) TempSrc: Oral SpO2: 96% Physical Exam Vitals and nursing note reviewed. Constitutional: Appearance: Normal appearance. HENT: Head: Normocephalic and atraumatic. Cardiovascular: Rate and Rhythm: Normal rate and regular rhythm. Pulses: Normal pulses. Heart sounds: Normal heart sounds. Pulmonary: Effort: Pulmonary effort is normal. Breath sounds: Normal breath sounds. Skin: General: Skin is warm and dry. Neurological: General: No focal deficit present. Mental Status: She is alert and oriented to person, place, and time. Psychiatric: Mood and Affect: Mood normal. Behavior: Behavior normal. 02/02/25 1457 High Sensitivity Troponin I Collected: 02/02/25 1234 Final result Specimen: Blood, Venous TROPONIN I HIGH SENSITIVITY <2.7 ng/L 02/02/25 1451 Comprehensive Metabolic Panel Collected: 02/02/25 1234 Final result Specimen: Blood, Venous Sodium 137 mmol/L Glucose 77 mg/dL Potassium 4.2 mmol/L Calcium 9.5 mg/dL Chloride 108 mmol/L Bilirubin, Total 0.3 mg/dL Carbon Dioxide 24 mmol/L Aspartate Amino Transferase 41 High U/L Anion Gap 9 Low Alanine Aminotransferase 34 High U/L Urea Nitrogen (BUN) 11 mg/dL Total Protein 7.7 g/dL Creatinine, Serum 0.71 mg/dL Albumin Level 4.6 g/dL Estimated Glomerular Filt Rate >60 Alkaline Phosphatase 80 U/L 02/02/25 1337 CBC auto differential Collected: 02/02/25 1234 Final result Specimen: Blood, Venous White Blood Count 6.7 X10*3/uL Lymphocytes Percent Auto 14.2 Low % Red Blood Count 3.81 Low X10*6/uL Monocytes Percent Auto 6.3 % Hemoglobin 11.4 Low g/dl Eosinophils Percent Auto 0.6 % Hematocrit 34.6 Low % Basophils Percent Auto 0.1 % Mean Corpuscular Volume 90.8 fL NRBC Pct Auto 0.0 /100WBC Mean Corpuscular Hemoglobin 29.9 pg Neutrophils Absolute Auto 5.3 x10*3/uL Mean Corpuscular HGB Conc 32.9 g/dl Imm Gran Abs Auto 0.02 X10*3/uL Red Cell Distribution Width 13.2 % Lymphocytes Absolute Auto 1.0 Low X10*3/uL Platelet Count 213 X10*3/uL Monocytes Absolute Auto 0.4 X10*3/uL Mean Platelet Volume 9.5 fL Eosinophils Absolute Auto 0.0 X10*3/uL Neutrophils Percent Auto 78.5 High % Basophils Absolute Auto 0.0 X10*3/uL Imm Gran Pct Auto 0.3 % ASSESSMENT/PLAN Problem List Items Addressed This Visit Asthma - Primary Current Assessment & Plan -Acute exacerbation of asthma -Start prednisone 40mg daily x 5 days -Continue maintenance inhaler: Symbicort 2 puffs BID, and PRN per updated RACQUEL / SMART guidelines. Advised to rinse mouth after every use. -Albuterol PRN -Reviewed med safety and SE Follow up with any worsening or failure Education about starting Symbicort with any URI symptoms Relevant Medications budesonide-formoterol (Symbicort) 160-4.5 MCG/ACT inhaler predniSONE (Deltasone) 20 MG tablet Other Relevant Orders Influenza B (ID NOW Rapid Molecular) (Completed) Influenza A (ID NOW Rapid Molecular) (Completed) POCT Rapid COVID Ag (Completed) POCT rapid strep A manually resulted (Completed) Other Visit Diagnoses Chest pain on breathing Relevant Orders High Sensitivity Troponin I (Completed) D-Dimer, Quantitative CBC auto differential (Completed) Comprehensive Metabolic Panel (Completed) ECG 12 lead (Completed) ECG 12 lead (Completed) Follow Up: with PCP or sooner prn No Known Allergies Current Outpatient Medications: budesonide-formoterol (Symbicort) 160-4.5 MCG/ACT inhaler, Inhale 2 puffs in the morning and at bedtime. Rinse mouth with water after use to reduce aftertaste and incidence of candidiasis. Do not swallow., Disp: 1 each, Rfl: 11 predniSONE (Deltasone) 20 MG tablet, Take 2 tablets (40 mg) by mouth Once per day for 5 days., Disp: 10 tablet, Rfl: 0 Korean Translation: Patient is bilingual and declines translation services documented in this encounter Miscellaneous Notes * Assessment & Plan Note - Rebekah Powers MD - 02/05/2025 3:07 PM EDTAssociated Problem(s): Mild persistent asthma -Acute exacerbation of asthma -Start prednisone 40mg daily x 5 days -Continue maintenance inhaler: Symbicort 2 puffs BID, and PRN per updated RACQUEL / SMART guidelines. Advised to rinse mouth after every use. -Albuterol PRN -Reviewed med safety and SE Follow up with any worsening or failure Education about starting Symbicort with any URI symptoms documented in this encounter Plan of Treatment Scheduled Orders Name Type Priority Associated Diagnoses Orde r Schedule D-Dimer, Quantitative Lab STAT Chest pain on breathing Expected: 02/02/2025 (Approximate), Expires: 02/02/2026 documented as of this encounter Procedures Procedure Name Priority Date/Time Associated Diagnosis Comments ECG 12-LEAD Routine 02/04/2025 8:57 PM EDT Chest pain on breathing ECG 12-LEAD Routine 02/02/2025 4:35 PM EDT Chest pain on breathing HIGH SENSITIVITY TROPONIN I STAT 02/02/2025 12:34 PM EDT Chest pain on breathing CBC WITH AUTO DIFFERENTIAL STAT 02/02/2025 12:34 PM EDT Chest pain on breathing COMPREHENSIVE METABOLIC PANEL STAT 02/02/2025 12:34 PM EDT Chest pain [...] complicated documented in this encounter Results * ECG 12 lead (02/04/2025 8:57 PM EDT) Rebekah Mercado MD - 02/04/2025 8:57 PM EDT NSR, VR 72, no acute ST-T segment changes us Rebekah Powers MD ECG ORDERABLES Final Result * ECG 12 lead (02/02/2025 4:35 PM EDT) Rebekah Mercado MD - 02/05/2025 3:06 PM EDT NSR, HR 80s, no acute ST-T segment changes us Rebekah Powers MD ECG ORDERABLES Final Result * (ABNORMAL) Comprehensive Metabolic Panel (02/02/2025 12:34 PM EDT) Sodium 137 135 - 145 mmol/L [facility] Potassium 4.2 3.3 - 5.1 mmol/L [facility] Chloride 108 96 - 108 mmol/L [facility] Carbon Dioxide 24 22 - 29 mmol/L [facility] Anion Gap 9(L) 12 - 20 [facility] Urea Nitrogen (BUN) 11 9 - 16 mg/dL [facility] Creatinine, Serum 0.71 0.5 - 1.4 mg/dL [facility] Estimated Glomerular Filt Rate >60 [facility] Comment:Chronic Kidney Disea se: Estimated GFR < 60 mL/min/1.05b7Mizvbo Kidney Disease: Estimated GFR < 15 mL/min/1.73m2 Glucose 77 60 - 115 mg/dL [facility] Calcium 9.5 8.4 - 10.2 mg/dL [facility] Bilirubin, Total 0.3 0.0 - 1.0 mg/dL [facility] Aspartate Amino Transferase 41(H) 5 - 31 U/L [facility] Alanine Aminotransferase 34(H) 0 - 31 U/L [facility] Total Protein 7.7 6.5 - 8.0 g/dL [facility] Albumin Level 4.6 3.5 - 5.0 g/dL [facility] Alkaline Phosphatase 80 39 - 117 U/L [facility] Blood Venous blood specimen / Unknown 02/02/2025 12:34 PM EDT 02/02/2025 1:38 PM EDT eRbekah Powers MD LAB BLOOD ORDERABLES Final Res ult [facility] [address] [place] [phone] * (ABNORMAL) CBC auto differential (02/02/2025 12:34 PM EDT) White Blood Count 6.7 4.8 - 10.8 X10*3/uL [facility] Red Blood Count 3.81(L) 4.20 - 5.50 X10*6/uL [facility] Hemoglobin 11.4(L) 12.0 - 16.0 g/dl [facility] Hematocrit 34.6(L) 37.0 - 47.0 % [facility] Mean Corpuscular Volume 90.8 80.0 - 98.0 fL [facility] Mean Corpuscular Hemoglobin 29.9 27.0 - 33.0 pg [facility] Mean Corpuscular HGB Conc 32.9 31.0 - 35.0 g/dl [facility] Red Cell Distribution Width 13.2 11.0 - 16.0 % [facility] Platelet Count 213 160 - 400 X10*3/uL [facility] Mean Platelet Volume 9.5 9.4 - 12.3 fL [facility] Neutrophils Percent Auto 78.5(H) 45 - 73 % [facility] Imm Gran Pct Auto 0.3 0.0 - 0.4 % [facility] Lymphocytes Percent Auto 14.2(L) 20 - 40 % [facility] Monocytes Percent Auto 6.3 2 - 11 % [facility] Eosinophils Percent Auto 0.6 0 - 4 % [facility] Basophils Percent Auto 0.1 0 - 2 % [facility] NRBC Pct Auto 0.0 0.0 - 0.2 /100WBC [facility] Neutrophils Absolute Auto 5.3 2.0 - 8.3 x10*3/uL [facility] Imm Gran Abs Auto 0.02 0.00 - 0.03 X10*3/uL [facility] Lymphocytes Absolute Auto 1.0(L) 1.2 - 4.9 X10*3/uL [facility] Monocytes Absolute Auto 0.4 0.1 - 1.2 X10*3/uL [facility] Eosinophils Absolute Auto 0.0 0.0 - 0.4 X10*3/uL [facility] Basophils Absolute Auto 0.0 0.0 - 0.2 X10*3/uL [facility] NRBC Abs Auto 0.000 0.0 - 0.012 X10*3/uL [facility] Blood Venous blood specimen / Unknown 02/02/2025 12:34 PM EDT 02/02/2025 1:[address] [facility] Rebekah Powers MD LAB BLOOD ORDERABLES Final Res ult Performing Organization Address [facility] de Phone Number [facility] [address] [place] [phone] * High Sensitivity Troponin I (02/02/2025 12:34 PM EDT) [facility] TROPONIN I HIGH SENSITIVITY <2.7 <3.5 - 17.0 ng/L [facility] Comment:The [facility] high sens itivity Troponin-I results should beused in conjunction with other diagnostic information suchas ECG, clinical observations and information, and patientsymptoms to aid in the diagnosis of MT. Blood Venous blood specimen / Unknown 02/02/2025 12:34 PM EDT 02/02/2025 1:38 PM EDT Rebekah Powres MD LAB BLOOD ORDERABLES Final Res ult Performing Organization Address [facility] de Phone Number [facility] [address] [place] [phone] * POCT rapid strep A manually resulted (02/02/2025 12:17 PM EDT) [facility] Rapid Strep A Screen Negative Negative, None Detected Swab 02/02/2025 12:[address] [facility] Rebekah Powers MD POINT OF CARE TEST ENTER/EDIT ORDERABLES Final Result * POCT Rapid COVID Ag (02/02/2025 12:17 PM EDT) [facility] Rapid COVID Ag Negative Swab 02/02/2025 12:1 7 PM EDT Rebekah Powers MD POINT OF CARE TEST ENTER/EDIT ORDERABLES Final Result * Influenza A (ID NOW Rapid Molecular) (02/02/2025 12:17 PM EDT) Influenza A Negative Negative, Indeterminate [facility] Swab 02/02/2025 12:1 7 PM EDT Rebekah Powers MD POINT OF CARE TEST ENTER/EDIT ORDERABLES Final Result Performing Organization Address [facility]/ZIP Co de Phone Number [facility] [address] [place] [phone] * Influenza B (ID NOW Rapid Molecular) (02/02/2025 12:17 PM EDT) Influenza B Negative Negative, Indeterminate [facility] Swab 02/02/2025 12:1 7 PM EDT Rebekah Powers MD POINT OF CARE TEST ENTER/EDIT ORDERABLES Final Result Performing Organization Address [facility] Co de Phone Number [facility] [address] [place] [phone] documented in this encounter Visit Diagnoses Diagnosis Mild intermittent asthma, unspecified whether complicated- Primary Chest pain on breathing Painful respiration documented in this encounter
--- OUTSIDE RECORDS SUMMARY | 2025-02-07 10:29 | XMS_ITS | Encounter Summary ---
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 She initially presented with 10/10 chest pain worse with coughing, walking, talking. Additionally reported cough/ congestion. She was diagnosed with an acute asthma exacerbation and treated with prednisone 40 mg x 5 days, Symbicort BID, and albuterol PRN. Today, she complains of the same symptoms. She reports no improvement with the above medications. She has 2 prednisone tablets left with her now. She also reports tongue sensitivity. She reports she has been rinsing her mouth after using her inhalers. Her EKG done on 02/02 demonstrated NSR HR 80s per provider interpretation. Reports she does not have PCP currently. Not interested in being added to our new patient list at this time. Vitals: BP 114/78 HR 64 RR 18 SpO2 99% on room air Temp 97.5 (oral) Plan: Report to Dr. Gamboa Provider in to see patient at this time Emma Bowling RN documented in this encounter Plan of Treatment Not on file documented as of this encounter Visit Diagnoses Not on filedocumented in this encounter
--- OUTSIDE RECORDS SUMMARY | 2025-02-07 10:29 | XMS_ITS | Encounter Summary ---
Author Organization [facility] Address [address] [place] [address] Care Team Providers Care Senior Center Director Name Role Phone Unavailable Primary Care Provider Unavailabl e Reason for Visit * Reason Onset Date Comments Results 02/05/2025 Encounter Details Date Type Department Care Team ([facility] st Contact Info) Description 02/05/2025 Telephone [facility] [address] [place], [place] [phone] Rebekah Powers MD [address] [place], [place] [phone] Results Social History Tobacco Use Types Packs/Day Years [...] Telephone Encounter - Emma Bowling RN - 02/05/2025 9:40 AM EDT Call placed to patient regarding message below. Advised patient her labs returned normal, with the exception of the Ddimer we are waiting on. Advised patient we will contact again if that lab is abnormal. Reinforced plan of care - rest, hydration, symbicort every 4-6 hours, and prednisone for 5 days. Patient reports she is still congested but starting to feel more alive. Patient verbalizes understanding and agreement with plan of care at this time. ----- Message from Rebekah Powers MD sent at 02/04/2025 8:58 PM EDT ----- Please let patient know that al her labs returned normal, except we are still awaiting the Ddimer. We will contact her if it comes back abnormal. Otherwise, continue to treat at asthma excerbation, rest, drink water, use Symbicort every 4-6 hours as needed and continue Prednisone x 5 days. Thank you! documented in this encounter Plan of Treatment Not on file documented as of this encounter Visit Diagnoses Not on filedocumented in this encounter
--- OUTSIDE RECORDS SUMMARY | 2025-02-07 10:29 | XMS_ITS | Clinical Summary ---
Author Organization [employer] Address [address] [facility] 7t [place] [address] Care Team Providers Care Cafe Team Member Name Role Phone Unavailable Primary Care Provider [...] days. 10 tablet 5 02/08/20 25 Active naproxen (Naprosyn) 500 MG tablet Take 1 tablet (500 mg) by mouth if needed in the morning and at bedtime for mild pain. 40 tablet 1 5 02/08/20 26 Active baclofen (Lioresal) 10 MG tablet Take 1 tablet (10 mg) by mouth if needed in the morning, at noon, and at bedtime for muscle spasms. 60 tablet 1 5 04/08/20 25 Active Diclofenac Sodium 1 % gel Apply 2 g topically if needed in the morning, at noon, in the evening, and at bedtime (pain). 150 g 3 5 Active lidocaine (Lidoderm) 5 % patch Apply 1 patch topically Once per day. Remove & discard patch within 12 hours or as directed by MD. 30 patch 1 5 Active loratadine (Claritin) 10 MG tablet Take 1 tablet (10 mg) by mouth Once per day. 30 tablet 3 5 02/08/20 26 Active fluticasone (Flonase) 50 MCG/ACT nasal spray Administer 2 sprays into each nostril Once per day. Shake gently. Before first use, prime pump. After use, clean tip and replace cap. 16 g 3 5 02/08/20 26 Active benzonatate (Tessalon Perles) 100 MG capsule Take 1 capsule (100 mg) by mouth if needed in the morning, at noon, and at bedtime for cough for up to 10 days. Do not crush or chew. 30 capsule 5 02/18/20 25 Active amoxicillin (Amoxil) 500 MG capsule [...] Active Problems Problem Noted Date Diagnosed Date Major depression, recurrent, chronic 02/02/2025 Constipation 02/02/2025 Anemia 02/02/2025 Anxiety 01/11/2025 Mild persistent asthma 01/11/2025 Assessment & Plan (02/05/2025 3:07 PM EDT): -Acute exacerbation of asthma -Start prednisone 40mg daily x 5 days -Continue maintenance inhaler: Symbicort 2 puffs BID, and PRN per updated RACQUEL / SMART guidelines. Advised to rinse mouth after every use. -Albuterol PRN -Reviewed med safety and SE Follow up with any worsening or failure Education about starting Symbicort with any URI symptoms Encounters Date Type Department Care Team Description 02/07/2025 8:40 AM EDT Office Visit [facility] [address] [place] [phone] Chest pain, unspecified type (Primary Dx); Mild persistent asthma without complication; Nasal congestion 02/07/2025 Telephone [facility] [address] [place] [phone] Cooper Irlanda, DO 02/07/2025 Telephone [facility] [address] [place] [phone] Irlanda Gamboa, DO 02/05/2025 Telephone [facility] [address] [place] [phone] Rebekah Powers MD Results 02/02/2025 1:00 PM EDT Office Visit [facility] [address] [place] [phone] Rebekah Powers MD Mild intermittent asthma, unspecified whether complicated (Primary Dx); Chest pain on breathing 01/11/2025 11:30 AM EDT Office Visit [facility] [address] [place] [phone] Aron Gonzalez DMD Mild intermittent asthma, unspecified whether complicated (Primary Dx) 01/11/2025 Telephone [facility] [address] [place] [phone] Tien Rivas MD 01/11/2025 Telephone [facility] [address] [place] [phone] Aron Gonzalez DMD unable to post insurance 01/10/[address] [address] Tien Rivas MD from Last 3 Months [...] Sign Reading Time Taken Comments Blood Pressure 114/78 02/07/2025 8:41 AM EDT Pulse 64 02/07/2025 8:41 AM EDT Temperature 36.4 ??C (97.5 ??F) 02/07/2025 8:41 AM ED T Respiratory Rate 18 02/07/2025 8:41 AM EDT Oxygen Saturation 99% 02/07/2025 8:41 AM EDT Inhaled Oxygen Concentration - - Weight 67.4 kg (148 lb 9.6 oz) 01/07/2021 12:03 AM EST Height - - Body Mass Index - - Plan of Treatment Health Maintenance Due Date [...] Full Mouth 05/22/2024 021, 10/02/2014 COVID-19 Vaccine (3 - 2023-2 5 season) 2024 12/31/2021, 12/10/2021 Influenza Vaccine (#1) 2024 2, 08/15/2017 Tobacco Screening 02/07/2026 02/07/2025 DTaP/Tdap/Td Vaccines (2 - T d or [...] Procedure Name Priority Date/Time Associated Diagnosis Comments XR CHEST 2 VIEWS STAT 02/07/2025 9:39 AM EDT Chest pain, unspecified type ECG 12-LEAD Routine 02/04/2025 8:57 PM EDT Chest pain on breathing ECG 12-LEAD Routine 02/02/2025 4:35 PM EDT Chest pain on breathing COMPREHENSIVE METABOLIC PANEL STAT 02/02/2025 12:34 PM EDT Chest pain on breathing CBC WITH AUTO DIFFERENTIAL STAT 02/02/2025 12:34 PM EDT Chest pain on breathing HIGH [...] Recently Relevant to Health Maintenance Results * XR Chest 2 Views (02/07/2025 9:39 AM EDT) Anatomical Region Laterality Modality Chest Radiographic Bettye ging 02/07/2025 9:39 AM EDT Narrative 02/07/2025 10:05 AM EDT ?[facility] ?[address] ?[place] [address] ?XRay Report ? Signed ? Patient: Adriana,Poppy ?MR#: [id number] ?? 7 ? : 1995 ?Acct:[id number] ? Age/Sex: 29 / F ?ADM Date: 02/07/25 ? Loc: HO.HHCX ? Attending Dr: Irlanda Gamboa DO ? Ordering Physician: Irlanda Gamboa DO ?? Date of Service: 02/07/25 ?? Procedure(s): XR chest 2V ?? Accession Number(s): [id number] ? cc: Irlanda Gamboa DO ? EXAMINATION: ??XR CHEST 2 VIEWS ? HISTORY: CP x one week ? COMPARISON: Comparison is made with the prior examination dated ?? 01/14/2025. ? FINDINGS: ??PA and lateral views of the chest are submitted. The lungs ?? are expanded and clear. ??There is no pleural effusion, pneumothorax, or ?? pulmonary vascular congestion. ??The heart is normal in size. ??The bones ?? are intact. ? XR/XR chest 2V ?? IMPRESSION: ?? No acute cardiopulmonary abnormality. ? Electronically signed by: ??Sebastian Venegas MD ??02/07/2025 10:02 AM EDT ? Dictated By: ?Sebastian Venegas MD ? Signed By: ?<Electronically signed by Sebastian Venegas MD in OV> ?02/07/25 1002 ? DD/ 8 ? TD/TT: 02/07/25946 ? Environmental Adviser: ? Procedure Note Bamanant, Image - 02/07/[address]25 [place] [address] XRay Report Signed Patient: Poppy WrightMR#: [id number] 7 : 1995Acct:[id number] Age/Sex: 29 FADM Date: 02/07/25 Loc: HO.HHCX Attending Dr: Irlanda Gamboa DO Ordering Physician: Irlanda Gamboa DO Date of Service: 02/07/25 Procedure(s): XR chest 2V Accession Number(s): [id number] cc: Irlanda Gamboa DO EXAMINATION: XR CHEST 2 VIEWS HISTORY: CP x one week COMPARISON: Comparison is made with the prior examination dated 01/14/2025. FINDINGS: PA and lateral views of the chest are submitted. The lungs are expanded and clear. There is no pleural effusion, pneumothorax, or pulmonary vascular congestion. The heart is normal in size. The bones are intact. XR/XR chest 2V IMPRESSION: No acute cardiopulmonary abnormality. Electronically signed by: Sebastian Venegas MD 02/07/2025 10:02 AM EDT Dictated By: Sebastian Venegas MD Signed By: <Electronically signed by Sebastian Venegas MD in OV> 02/07/25 1002 DD/ 8 TD/TT: 02/07/25 0947 Environmental Adviser: Irlanda Cooper DO IMG XR PROCEDURES Final Resu lt * ECG 12 lead (02/04/2025 8:57 PM EDT) Only the most recent of2 resultswithin the time period is included. Narrative Rebekah Powers MD - 02/04/2025 8:57 PM EDT NSR, VR 72, no acute ST-T segment changes Rebekah Powers MD ECG ORDERABLES Final Result * High Sensitivity Troponin I (02/02/2025 12:34 PM EDT) [facility] TROPONIN I HIGH SENSITIVITY <2.7 <3.5 - 17.0 ng/L [facility] Comment:The Miller high sens itivity Troponin-I results should beused in conjunction with other diagnostic information suchas ECG, clinical observations and information, and patientsymptoms to aid in the diagnosis of OR. Blood Venous blood specimen / Unknown 02/02/2025 12:34 PM EDT 02/02/2025 1:38 PM EDT Result [facility] Rebekah Powers MD LAB BLOOD ORDERABLES Final Res ult [facility] [address] [place] [phone] * (ABNORMAL) CBC auto differential (02/02/2025 12:34 PM EDT) [facility] White Blood Count 6.7 4.8 - 10.8 X10*3/uL [facility] Red Blood Count 3.81(L) 4.20 - 5.50 X10*6/uL [facility] Hemoglobin 11.4(L) 12.0 - 16.0 g/dl [facility] Hematocrit 34.6(L) 37.0 - 47.0 % [facility] Mean Corpuscular Volume 90.8 80.0 - 98.0 fL [facility] Mean Corpuscular Hemoglobin 29.9 27.0 - 33.0 pg [facility] Mean Corpuscular HGB Conc 32.9 31.0 - 35.0 g/dl [facility] Red Cell Distribution Width 13.2 11.0 - 16.0 % [facility] Platelet Count 213 160 - 400 X10*3/uL [facility] Mean Platelet Volume 9.5 9.4 - 12.3 fL [facility] Neutrophils Percent Auto 78.5(H) 45 - 73 % [facility] Imm Gran Pct Auto 0.3 0.0 - 0.4 % [facility] Lymphocytes Percent Auto 14.2(L) 20 - 40 % [facility] Monocytes Percent Auto 6.3 2 - 11 % [facility] Eosinophils Percent Auto 0.6 0 - 4 % [facility] Basophils Percent Auto 0.1 0 - 2 % [facility] NRBC Pct Auto 0.0 0.0 - 0.2 /100WBC [facility] Neutrophils Absolute Auto 5.3 2.0 - 8.3 x10*3/uL [facility] Imm Gran Abs Auto 0.02 0.00 - 0.03 X10*3/uL [facility] Lymphocytes Absolute Auto 1.0(L) 1.2 - 4.9 X10*3/uL [facility] Monocytes Absolute Auto 0.4 0.1 - 1.2 X10*3/uL [facility] Eosinophils Absolute Auto 0.0 0.0 - 0.4 X10*3/uL [facility] Basophils Absolute Auto 0.0 0.0 - 0.2 X10*3/uL [facility] NRBC Abs Auto 0.000 0.0 - 0.012 X10*3/uL [facility] Blood Venous blood specimen / Unknown 02/02/2025 12:34 PM EDT 02/02/2025 1:21 PM EDT us Rebekah Powers MD LAB BLOOD ORDERABLES Final Res ult [facility] [address] [place], [place] [phone] * (ABNORMAL) Comprehensive Metabolic Panel (02/02/2025 12:34 PM EDT) Pathologist [facility] Sodium 137 135 - 145 mmol/L [facility] Potassium 4.2 3.3 - 5.1 mmol/L [facility] Chloride 108 96 - 108 mmol/L [facility] Carbon Dioxide 24 22 - 29 mmol/L [facility] Anion Gap 9(L) 12 - 20 [facility] Urea Nitrogen (BUN) 11 9 - 16 mg/dL [facility] Creatinine, Serum 0.71 0.5 - 1.4 mg/dL [facility] Estimated Glomerular Filt Rate >60 [facility] Comment:Chronic Kidney Disea se: Estimated GFR < 60 mL/min/1.39x5Bkqxwk Kidney Disease: Estimated GFR < 15 mL/min/1.73m2 Glucose 77 60 - 115 mg/dL [facility] Calcium 9.5 8.4 - 10.2 mg/dL [facility] Bilirubin, Total 0.3 0.0 - 1.0 mg/dL [facility] Aspartate Amino Transferase 41(H) 5 - 31 U/L [facility] Alanine Aminotransferase 34(H) 0 - 31 U/L [facility] Total Protein 7.7 6.5 - 8.0 g/dL [facility] Albumin Level 4.6 3.5 - 5.0 g/dL [facility] Alkaline Phosphatase 80 39 - 117 U/L [facility] Blood Venous blood specimen / Unknown 02/02/2025 12:34 PM EDT 02/02/2025 1:38 PM EDT us Rebekah Powers MD LAB BLOOD ORDERABLES Final Res ult [facility] [address] [place] [phone] * Influenza B (ID NOW Rapid Molecular) (02/02/2025 12:17 PM EDT) Pathologist [facility] Influenza B Negative Negative, Indeterminate [facility] Swab 02/02/2025 12:1 7 PM EDT Rebekah Powers MD POINT OF CARE TEST ENTER/EDIT ORDERABLES Final Result [facility] [address] [place] [address] [phone] * Influenza A (ID NOW Rapid Molecular) (02/02/2025 12:17 PM EDT) [facility] Influenza A Negative Negative, Indeterminate [facility] Swab 02/02/2025 12:1 7 PM EDT Rebekah Powers MD POINT OF CARE TEST ENTER/EDIT ORDERABLES Final Result Performing Organization Address City/[facility]/ZIP Co de Phone Number [facility] [address] [place] [phone] * POCT Rapid COVID Ag (02/02/2025 12:17 PM EDT) [facility] Rapid COVID Ag Negative Swab 02/02/2025 12:1 7 PM EDT Result [facility] Rebekah Powers MD POINT OF CARE TEST ENTER/EDIT ORDERABLES Final Result * POCT rapid strep A manually resulted (02/02/2025 12:17 PM EDT) [facility] Rapid Strep A Screen Negative Negative, None Detected Swab 02/02/2025 12:1 7 PM EDT Rebekah Powers MD POINT OF CARE TEST ENTER/EDIT ORDERABLES Final Result from Last 3 Months Insurance [facility] [employer] C[facility] [facility] MEDICAID STAND ADULT
--- OUTSIDE RECORDS SUMMARY | 2025-02-07 10:29 | XMS_ITS | Encounter Summary ---
Author Organization [facility] Address [address] [facility] 7t [place] [address] Care Team Providers Care Car Sealer Name Role Phone Unavailable Primary Care Provider Unavailabl e Reason for Visit * Reason Comments Asthma Worse since visit 02/02 Chest Pain With coughing Tongue Pain Encounter Details Date Type Department Care Team (Late st Contact Info) Description 02/07/2025 8:40 AM EDT Office Visit [facility] [address] [place] [address] Chest pain, unspecified type (Primary Dx); Mild persistent asthma without complication; Nasal congestion Social History Tobacco Use Types Packs/Day Years [...] on file documented as of this encounter Procedures Procedure Name Priority Date/Time Associated Diagnosis Comments XR CHEST 2 VIEWS STAT 02/07/2025 9:39 AM EDT Chest pain, unspecified type documented in this encounter Results * XR Chest 2 Views (02/07/2025 9:39 AM EDT) Anatomical Region Laterality Modality Chest Radiographic Bettye ging 02/07/2025 9:39 AM EDT Narrative 02/07/2025 10:05 AM EDT ?[facility] ?[address] ?[place] [address] ?XRay Report ? Signed ? Patient: Poppy Wright ?MR#: [id number] ?? 7 ? : 1995 ?Acct:[id number] ? Age/Sex: 29 / F ?ADM Date: 02/07/25 ? Loc: HO.HHCX ? Attending Dr: Irlanda Gamboa DO ? Ordering Physician: Irlanda Gamboa DO ?? Date of Service: 02/07/25 ?? Procedure(s): XR chest 2V ?? Accession Number(s): [id number] ? cc: Irlanda Gamboa DO ? EXAMINATION: [...] ??Sebastian Venegas MD ??02/07/2025 10:02 AM EDT ?? RP ? Dictated By: ?Sebastian Venegas MD ? Signed By: ?<Electronically signed by Sebastian Venegas MD in OV> ?02/07/25 1002 ? DD/ 0939 ? TD/TT: 02/07/25 0947 ? Automation Driver: ? Procedure Note Lindsey aMsters - 02/07/2025 [facility] [address] [place] [address] XRay Report Signed Patient: Poppy WrightMR#: [id number] 7 : 1995Acct:[id number] Age/Sex: 29 / FADM Date: 02/07/25 Loc: HO.HHCX Attending Dr: Irlanda Gamboa DO Ordering Physician: Irlanda Gamboa DO Date of Service: 02/07/25 Procedure(s): XR chest 2V Accession Number(s): [id number] cc: Irlanda Gamboa DO EXAMINATION: XR CHEST [...] Venegas MD in OV> 02/07/25 1002 DD/ TD/TT: 02/07/2547 Automation Driver: Irlanda Gamboa DO IMG XR PROCEDURES Final Resu lt documented in this encounter Visit Diagnoses Diagnosis Chest pain, unspecified type- Primary Mild persistent asthma without complication Nasal congestion Other diseases of nasal cavity and sinuses documented in this encounter
--- OUTSIDE RECORDS SUMMARY | 2025-02-07 10:29 | XMS_ITS | Encounter Summary ---
Author Organization [facility] Address [address] [facility] 7t [place] [address] Care Team Providers Care Community Service Representative Name Role Phone Unavailable Primary Care Provider Unavailabl e Reason for Visit * Reason Onset Date Comments unable to post insurance 01/11/2025 Encounter Details Date Type Department Care Team (Late st Contact Info) Description 01/11/2025 Telephone [facility] [address] [place] [address] Aron Gonzalez, DMD [address] [place] [address] unable to post insurance Social History Tobacco [...] appt unable to post portal not running [facility] bob JOYCE documented in this encounter Plan of Treatment Not on file documented as of this encounter Visit Diagnoses Not on filedocumented in this encounter
--- OUTSIDE RECORDS SUMMARY | 2025-02-07 10:29 | XMS_ITS | Encounter Summary ---
Author Organization [facility] Address [address] [facility] 7t [place] [address] Care Team Providers Care Program Professional Name Role Phone Unavailable Primary Care Provider Unavailabl e Encounter Details Date Type Department Care Team (Late st Contact Info) Description 02/07/2025 Telephone [facility] [address] [place], [place] [phone] Irlanda Gamboa DO [address] [place], [place] [phone] Social History Tobacco Use Types Packs/Day Years Used Date Smoking Tobacco: Never Smokeless Tobacco: Never Comments Unknown Sex and Gender Information Value Date Recorded Sex Assigned at Female 08/31/2022 10:17 AM EDT Legal Sex Female 10:17 AM EDT Gender Identity Female 08/31/2022 10:17 AM EDT Sexual Orientation Straight 09/02/2022 4: 12 PM EDT Sexual Orientation Lesbian or Young 09/02/2022 4 :12 PM EDT documented as of this encounter Miscellaneous Notes * Telephone Encounter - Irlanda Gamboa DO - 02/07/2025 10:14 AM EDT Please let patient know that her CXR was nml. Thank you. documented in this encounter Plan of Treatment Not on file documented as of this encounter Visit Diagnoses Not on filedocumented in this encounter
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
== END 2025-02-07 09:39 | disposition home or self-care (01) ==
LOC: HO.HHCX 09:38
PROVIDERS: Visit Provider Family Medicine
DX: R07.9 Chest pain, unspecified (principal)
CPT/HCPCS: 71046

== ENCOUNTER → 2025-02-07 09:39 | Outpatient (BNV) | payer OTHER, SELFPAY | PROVIDERS: Visit Provider Radiology Diagnostic Radiology | DX: R07.9 Chest pain, unspecified (principal) | CPT/HCPCS: 71046 ==

== ENCOUNTER 2025-05-21 11:15 | Outpatient (REF) | payer OTHER, SELFPAY ==
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
--- OUTSIDE RECORDS SUMMARY | 2025-05-21 12:25 | XMS_ITS | Encounter Summary ---
Author Organization [facility] Address [address] [facility] 7t [place] [address] Care Team Providers Care Simulation Analyst Name Role Phone Balbina Khalil MD Primary Care Provider + Reason for Visit * Reason Comments Med Refill Encounter Details Date Type Department Care Team (Late Contact Info) Description 05/01/2025 Refill [facility] [address] [place] [address] Irlanda Gamboa DO [address] [place] [address] Social History Tobacco Use Types Packs/Day Years Used Date Smoking Tobacco: Never Smokeless Tobacco: Never Alcohol Use Standard Drinks/Week Comments Defer 0 (1 standard drink = 0.6 oz pur e alcohol) Comments Unknown Sex and Gender Information Value Date Recorded Sex Assigned at Female 08/31/2022 10:17 AM EDT Legal Sex Female 10:17 AM EDT Gender Identity Female 08/31/2022 10:17 AM EDT Sexual Orientation Straight 09/02/2022 4: 12 PM EDT Sexual Orientation Lesbian or Young 09/02/2022 4: 12 PM EDT documented as of this encounter Plan of Treatment Upcoming Encounters Date Type Department Care Team (Late st Contact Info) Description 07/20/2025 10:45 AM EDT Office Visit [facility] [address] [place] [address] Balbina Khalil MD [address] [place] [address] documented as of this encounter Visit Diagnoses Not on filedocumented in this encounter Care Teams Simulation Analyst Relationship Specialty Start Date End Date Balbina Khalil MD [address] [place] [address] PCP - General Internal Medicine 05/21/25 documented as of this encounter
[2025-05-21 12:59] LABS: MANUAL DIFF FLAG NO
[2025-05-21 13:12] LABS: Hematocrit 34.5 % (37.0-47.0); Hemoglobin 11.2 g/dl (12.0-16.0); Imm Gran Abs Auto 0.02 X10*3/uL (0.00-0.03); Imm Gran Pct Auto 0.3 % (0.0-0.4); Lymphocytes Absolute Auto 2.1 X10*3/uL (1.2-4.9); Mean Corpuscular HGB Conc 32.5 g/dl (31.0-35.0); Mean Corpuscular Hemoglobin 28.5 pg (27.0-33.0); Mean Corpuscular Volume 87.8 fL (80.0-98.0); NRBC Abs Auto 0.000 X10*3/uL (0.0-0.012); NRBC Pct Auto 0.0 /100WBC (0.0-0.2); Platelet Count 210 X10*3/uL (160-400); Red Blood Count 3.93 X10*6/uL (4.20-5.50); White Blood Count 6.2 X10*3/uL (4.8-10.8)
== END 2025-05-21 11:16 | disposition home or self-care (01) ==
LOC: HO.HHCL 11:15
PROVIDERS: PCP Internal Medicine; Visit Provider Internal Medicine
DX: N91.2 Amenorrhea, unspecified (principal)
CPT/HCPCS: 36415; 84443; 84702; 85025

== ENCOUNTER 2025-06-14 12:16 | Outpatient (REF) | payer OTHER, SELFPAY ==
--- OUTSIDE RECORDS SUMMARY | 2025-06-14 13:09 | XMS_ITS | Encounter Summary ---
Author Organization [employer] Address [address] [facility] 7t [place] [address] Care Team Providers Care Construction Accountant Name Role Phone Balbina Khalil MD Primary Care Provider + Reason for Visit * Reason Comments Med Refill Encounter Details Date Type Department Care Team (Late st Contact Info) Description 05/01/2025 Refill [facility] [address] [place], [place] [phone] Irlanda Gamboa DO [address] [place], [place] [phone] Social History Tobacco Use Types Packs/Day Years [...] Care Team (Late st Contact Info) Description 06/18/2025 8:00 AM EDT Office Visit [facility] [address] [place], [place] [phone] Anisha Young DDS [address] [place] [address] 07/20/2025 10:45 AM EDT Office Visit [facility] MED[facility] [address] [place] [address] Balbina Khalil MD [address] [place] [address] documented as of this encounter Visit Diagnoses Not on filedocumented in this encounter Care Teams Construction Accountant Relationship Specialty Start Date End Date Balbina Khalil MD [address] [place] [phone] PCP - General Internal Medicine 05/21/25 documented as of this encounter
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
[2025-06-17 19:13] LABS: TS Negative Control Passed; TS Panel A 1; TS Panel B 0; TS Positive Control Passed; TSpotTB Negative (Negative)
== END 2025-06-14 12:17 | disposition home or self-care (01) ==
LOC: HO.HHCL 12:16
PROVIDERS: PCP Internal Medicine; Visit Provider Internal Medicine
DX: Z11.1 Encounter for screening for respiratory tuberculosis (principal)
CPT/HCPCS: 36415; 86481

== ENCOUNTER 2025-08-22 07:23 | Emergency (ER) | payer MEDICAID, SELFPAY ==
--- NOTE | 2025-08-22 07:30 | ECG_ITS ---
Test Reason : cp Blood Pressure : */* mmHG Vent. Rate : 100 BPM Atrial Rate : 100 BPM P-R Int : 114 ms QRS Dur : 64 ms QT Int : 352 ms P-R-T Axes : 56 66 14 degrees QTcB Int : 454 ms Normal sinus rhythm Normal ECG When compared with ECG of 14-Jan-2025 11:27, Vent. rate has increased by 48 bpm QT has lengthened Referred By: Generic ED Physician Electronically Signed By: PETROS LEAHY MD
[2025-08-22 07:31] VITALS: BP 105/58; PULSE 104; RESP 20; TEMP 37; O2SAT 100; BMI 23.6
[2025-08-22 07:45] LABS: MANUAL DIFF FLAG NO
--- OUTSIDE RECORDS SUMMARY | 2025-08-22 07:47 | XMS_ITS | Encounter Summary ---
Author Organization [employer] Address [address] [facility] 7t h Floor [place] [id number] Care Team Providers Care Powerhouse Mechanic Supervisor Name Role Phone Balbina Khalil MD Primary Care Provider + Reason for Visit * Reason Comments Med Refill Encounter Details Date Type Department Care Team (Late st Contact Info) Description 05/01/2025 Refill [facility] [address] [place], [place] [phone] Irlanda Gamboa DO [address] [place], [place] [phone] Social History Tobacco Use Types Packs/Day Years [...] as of this encounter Plan of Treatment Not on file documented as of this encounter Visit Diagnoses Not on filedocumented in this encounter Care Teams Powerhouse Mechanic Supervisor Relationship Specialty Start Date End Date Balbina Khalil MD [address] [place] [id number] PCP - General Internal Medicine 05/21/25 documented as of this encounter
--- OUTSIDE RECORDS SUMMARY | 2025-08-22 07:47 | XMS_ITS | Encounter Summary ---
Author Organization [employer] Address [address] [facility] 7 [place] [address] Care Team Providers Care Personnel Placement Specialist Name Role Phone Balbina Khalil MD Primary Care Provider + Encounter Details Date Type Department Care Team ([facility] st Contact Info) Description 08/21/2025 Population Health Risk Score [facility] (C[facility]) Department [address] [phone] Provider, Population Health Generic Social History Tobacco Use Types Packs/Day Years Used Date Smoking Tobacco: Never Smokeless Tobacco: Never Alcohol Use Standard Drinks/Week Comments Defer 0 (1 standard drink = 0.6 oz pur e alcohol) Housing Stability Answer Date Recorded What is your housing situation today? I do not have housing (Staying with others, in a hotel, in a fci, living outside on the street, on a beach, in a car, or in a park 07/20/[address] you li ve. Do you have problems with any of the following? None of the above 07/20/2025 Food Insecurity Answer Date Recorded Within the past 12 months, y ou worried that your food would run out before you got money to buy more: Never True 07/20/2025 Within the past 12 months,th e food you bought just didn't last and you didn't have enough money to get more: Never True Transportation Answer Date Recorded In the past 12 months, has l ack of transportation kept you from medical appts, meetings, work or from getting things needed for daily living? No 07/20/2025 Comments Yes Sex and Gender Information Value Date Recorded [...] on filedocumented in this encounter Care Teams Personnel Placement Specialist Relationship Specialty Start Date End Date Balbina Khalil MD [address] [place] [id number] PCP - General Internal Medicine 05/21/25 documented as of this encounter
--- OUTSIDE RECORDS SUMMARY | 2025-08-22 07:48 | XMS_ITS | Clinical Summary ---
Author Organization [employer] Address [address] [facility] 7t [place] [address] Care Team Providers Care Cartridge Gauger Name Role Phone Balbina Khalil MD Primary Care Provider + Allergies No known active allergies Medications Diclofenac Sodium 1 % gel Apply 2 g topically if needed in the morning, at noon, in the evening, and at bedtime (pain). 150 g 3 5 Active Additional Information Patient not taking.Reported on 07/20/2025 fluticasone (Flonase) 50 MCG/ACT nasal spray Administer 2 sprays into each nostril Once per day. Shake gently. Before first use, prime pump. After use, clean tip and replace cap. 16 g 3 5 02/08/20 26 Active Additional Information Patient not taking.Reported on 07/20/2025 acetaminophen (Tylenol 8 Hour) 650 MG ER tablet Take 1 tablet (650 mg) by mouth every 8 (eight) hours if needed for mild pain. Do not crush, chew, or split. 30 tablet 5 Active Additional Information Patient not taking.Reported on 07/20/2025 fluticasone furoate (Arnuity Ellipta) 100 MCG/ACT inhaler Inhale 1 puff Once per day. Rinse mouth with water after use to reduce aftertaste and incidence of candidiasis. Do not swallow. 1 each 11 5 05/21/20 26 Active multivitamin () 27-0.8 MG tablet TAKE 1 TABLET BY MOUTH EVERY DAY 30 tablet 3 5 Active Iron, Ferrous Sulfate, 325 (65 Fe) MG tablet Take 1 tablet by mouth Once per day. 30 tablet 3 5 Active Active Problems Problem Noted Date Diagnosed Date 05/21/2025 Assessment & Plan (07/20/2025 4:45 PM EDT): She is 14 weeks and seems to be doing well despite mild intolerance to vitamins. Will send a new referral to [facility] which she will continue to be followed. Recommended to buy a different vitamins brand that she can tolerate better, consider other brands used at previous Assessment & Plan (05/21/2025 12:37 PM EDT): Patient is very excited to have her fifth child, congratulated her for that and sent her for confirmatory/quantitative hCG. She is aware that she will be seen by OB sometime between the 8 or 12-week . Start vitamins, order labs to rule out anemia, may need to start iron supplementation if hemoglobin is below 9. Advised regarding increase hydration, small infarction meals and take sirena teas as needed nausea, or reconsult as needed Advised against recreational substance use or alcohol and follow-up with PCP she has not received an OB referral within the next 2 weeks Advised to come to ED if you develop severe abdominal pain, vaginal bleeding, severe back pain, UTI symptoms or vaginal discharge, fever, URI symptoms. Symptomatic irreversible pulpitis 03/20/2025 Pain, dental 03/20/2025 Major depression, recurrent, chronic 02/02/2025 Constipation 02/02/2025 Assessment & Plan (07/20/2025 4:38 PM EDT): Advised to use prune juice, raisins, increase water intake or OTC docusate Anemia 02/02/2025 Assessment & Plan (07/20/2025 4:46 PM EDT): Most likely related to , she will continue vitamin supplementation Start iron sulfate daily x 3 months, we discussed about avoiding further constipation as above and GI side effects. Follow-up CBC in 3 months Anxiety 01/11/2025 Mild persistent asthma 01/11/2025 Assessment & Plan (07/20/2025 4:47 PM EDT): It seems to be controlled on fluticasone daily, use albuterol as needed only. I advised regarding influenza and COVID immunization this season Follow-up with me in 3 months Assessment & Plan (05/21/2025 12:35 PM EDT): She is to use fluticasone inhaler daily (is not Symbicort) and albuterol as needed only (we discussed problems and benefits of untreated asthma versus side effects and risk of fluticasone, she elected to start fluticasone and she will call back as needed). She is not taking any other medications. She is a non-smoker. Assessment & Plan (02/05/2025 3:07 PM EDT): -Acute exacerbation of asthma -Start prednisone 40mg daily x 5 days -Continue maintenance inhaler: Symbicort 2 puffs BID, and PRN per updated RACQUEL / SMART guidelines. Advised to rinse mouth after every use. -Albuterol PRN -Reviewed med safety and SE Follow up with any worsening or failure Education about starting Symbicort with any URI symptoms Comments Yes Encounters Date Type Department Care Team Description 08/21/2025 Population Health Risk Score [facility] () Department [address] [place] [phone] Provider, Population Health Generic 07/20/2025 10:45 AM EDT Telemedicine [facility] [address] [place] [phone] Balbina Khalil MD 14 weeks gestation of (Primary Dx); Iron deficiency anemia, unspecified iron deficiency anemia type; Chronic idiopathic constipation; Mild persistent asthma without complication 07/20/2025 Travel 07/19/2025 Telephone [facility] [address] [place] [phone] Balbina Khalil MD Chart Prep 07/10/2025 Travel 07/09/2025 Telephone [facility] [address] [place] [phone] Balbian Khalil MD Med Refill 07/09/2025 Refill [facility] [address] [place] [phone] Balbina Khalil MD 06/14/2025 Telephone [facility] [address] [place] [phone] Balbina Khalil MD 06/14/2025 Telephone [facility] [address] [facility] [place] [address] Balbina Khalil MD from Last 3 Months Immunizations Immunization Administration Dates Next Due Influenza Injectable Quadriv alant Preservative Free IIV4 MDCK 04/14/2022 Influenza injectable quadrivalent preservative f ree 08/15/2017 Td (adult), 5 Lf tetanus tox oid, preservative free, adsorbed 06/24/2013 Tdap 07/12/2017 Social History Tobacco Use Types Packs/Day Years Used Date Smoking Tobacco: Never Smokeless Tobacco: Never Tobacco Cessation:Counseling Given: Not Answered Alcohol Use Standard Drinks/Week Comments Defer 0 [...] Sign Reading Time Taken Comments Blood Pressure 95/61 05/21/2025 10:47 AM EDT Pulse 76 05/21/2025 10:47 AM EDT Temperature 36.6 C (97.8 F) 05/21/2025 10:47 AM EDT Respiratory Rate 16 05/21/2025 10:47 AM EDT Oxygen Saturation 99% 04/20/2025 11:01 AM EDT Inhaled Oxygen Concentration - - Weight 61.3 kg (135 lb 3.2 oz) 05/21/2025 10:47 AM EDT Height 152.4 cm (5') 05/21/2025 10:47 AM EDT Body Mass Index 26.4 05/21/2025 10:47 AM EDT Plan of Treatment Health Maintenance Due Date Last Done Comments Depression Screening 1994 HIV Screening 1994 SDOH Screening 1994 Disability Screening 1994 Family Planning (PISQ) 2009 HPV Vaccines (1 - 3-dose series) 2009 Hepatitis C Screening 02/20/2012 Hepatitis B Vaccines (1 of 3 - 19+ 3-dose series) 2013 Pneumococcal Vaccine: Pediatrics (0 to 5 Years) and At-Risk Patients (6 to 49) Years (1 of 2 - PCV) 2013 Pap Smear 2015 Dental Prophylaxis 05/13/2015 11/12/2014, 02/07/2014 Dental Oral Exam 11/10/2015 05/09/2015, 11/12/2014, 02/07/2014 Dental X-Ray: Bitewings 05/10/2016 05/09/20 15, 11/12/2014 Cervical Cancer Screening 02/20/2024 HPV/Cotest 02/20/2024 COVID-19 Vaccine (3 - 2024-2 6 season) 2025 12/31/2021, 12/10/2021 Influenza Vaccine (#1) 2025 2, 08/15/2017 Alcohol/Substance Use Screening 07/20/2026 07/20/2025 Tobacco Screening 07/20/2026 07/20/2025 DTaP/Tdap/Td Vaccines (2 - T d or Tdap) 07/12/2027 07/12/2017, 06/24/2013 Dental X-Ray: Full Mouth 03/21/2028 025, 05/21/2021, 10/02/2014 Zoster Vaccines (1 of 2) 02/20/2044 RSV [...] Procedure Name Priority Date/Time Associated Diagnosis Comments T-SPOT(R).TB Routine 06/14/2025 12:42 PM EDT Screening examination for pulmonary tuberculosis PANORAMIC RADIOGRAPHIC IMAGE Routine 03/20/2025 8:30 AM EDT BITEWINGS - 4 RADIOGRAPHIC IMAGES Routine 05/09/2015 12:00 AM EDT PERIODIC ORAL EVALUATION - ESTABLISHED PATIENT Routine 05/09/2015 12:00 AM EDT PROPHYLAXIS - ADULT Routine 11/12/2014 1 2:00 AM EST from Last 3 Months or Most Recently Relevant to Health Maintenance Results * T-SPOT??.TB (06/14/2025 12:42 PM EDT) [facility] T Spot TB Negative Negative [facility] Comment:A negative test resu lt does not exclude the possibilityof exposure to or infection with Mycobacteriumtuberculosis (M. tuberculosis). Patients with recentexposure to TB infected individuals exhibiting anegative T-SPOT.TB result should be considered forretesting within 6 weeks or if other relevant clinicalsymptoms indicate. Results from T-SPOT.TB testing mustbe used in conjunction with each individual'sepidemiological history, current medical status,and results of other diagnostic evaluations.The T-SPOT.TB test is qualitative and results arereported as positive, borderline, or negative, giventhat the test controls perform as expected. In linewith the Centers for Disease Control and Prevention's2010 recommendation to report quantitative measurementsalongside the qualitative result, the laboratoryprovides spot counts for informational purposes only.The T-SPOT.TB test should not be interpreted as aquantitative test. TS PANEL A 1 [facility] TS PANEL B 0 [facility] Negative Control Passed [facility] Positive Control Passed [facility] Comment:For additional infor milo, please refer tohttp://education.Sonos/faq/AVQ528(This link is being provided for informational/educational purposes only.)REPORT COMMENT:REC'D AT YTH TEST WAS PERFORMED AT:[facility] [id number] [place] [address]FZOIAMNYUNIOR GARCIA MD,PHD 06/14/2025 12:4 2 PM EDT 06/14/2025 4:28 PM EDT Balbina Khalil MD LAB BLOOD ORDERABLES Fin al Result [facility] [address] [place] [address] [phone] from Last [address] [facility] C3 DENTAL-[facility] MEDICAID STAND ADULT Care Teams Cartridge Gauger Relationship Specialty Start Date End Date Balbina Khalil MD [address] [place] [address] [place] [address] PCP - General Internal Medicine 05/21/25
--- OUTSIDE RECORDS SUMMARY | 2025-08-22 07:48 | XMS_ITS | Encounter Summary ---
Author Organization [employer] Address [address] [place] [address] 7t [place] [address] Care Team Providers Care Rolled Ham Lacer Name Role Phone Balbina Khalil MD Primary Care Provider + Reason for Visit * Reason Onset Date Comments unable to post insurance 01/11/2025 Encounter Details Date Type Department Care Team (Late st Contact Info) Description 01/11/2025 Telephone [facility] [address] [place] [address] Aron Gonzalez DMD [address] [place] [address] unable to post insurance Social History Tobacco [...] appt unable to post portal not running [facility] documented in this encounter Plan of Treatment Not on file documented as of this encounter Visit Diagnoses Not on filedocumented in this encounter Care Teams Rolled Ham Lacer Relationship Specialty Start Date End Date Balbina Khalil MD [address] [place] [address] PCP - General Internal Medicine 05/21/25 documented as of this encounter
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
[2025-08-22 07:49] LABS: Hematocrit 31.7 % (37.0-47.0); Hemoglobin 10.7 g/dl (12.0-16.0); Imm Gran Abs Auto 0.03 X10*3/uL (0.00-0.03); Imm Gran Pct Auto 0.3 % (0.0-0.4); Lymphocytes Absolute Auto 0.9 X10*3/uL (1.2-4.9); Mean Corpuscular HGB Conc 33.8 g/dl (31.0-35.0); Mean Corpuscular Hemoglobin 29.8 pg (27.0-33.0); Mean Corpuscular Volume 88.3 fL (80.0-98.0); NRBC Abs Auto 0.000 X10*3/uL (0.0-0.012); NRBC Pct Auto 0.0 /100WBC (0.0-0.2); Platelet Count 205 X10*3/uL (160-400); Red Blood Count 3.59 X10*6/uL (4.20-5.50); White Blood Count 9.4 X10*3/uL (4.8-10.8)
--- NOTE | 2025-08-22 07:50 | ED_ITS ---
HPI - Chest Pain General Chief Complaint: Chest Pain Stated Complaint: CP, cough Time Seen by Provider: 08/22/25 07:40 Source: patient and old records reviewed Mode of arrival: ambulatory Limitations: no limitations History of Present Illness ED Provider: CAMILLE MONTOYA narrative: 30 yo female with PMH of asthma, anemia and migraines who is 18 weeks with her care at [facility] has had no issues she notes she is . Her partner had a cold and now since yesterday she has cough, sore throat, sternum pain and body aches. She denies fevers. She has not used her INH. She has not traveled or had any procedures. She has no bleeding, abdominal pain, back pain, n/v. She notes pain in chest to touch and movements. No leg swelling no orthopnea. MD complaint: chest heaviness Onset (ago): day(s) (1) Timing of current episode: episodic Prior episodes: No Onset: during rest Severity: mild Quality: aching Relieving factors: nothing Exacerbating factors: palpation, movement and other (coughing) Context: recent illness (she and partner are both ill) Associated symptoms: cough Treatment prior to arrival: none Related Data Home Medications ?Medication ?Instructions ?Recorded ?Confirmed levonorgestrel (Mirena) intrauterine 09/01/21 Previous Rx's ?Medication ?Instructions ?Recorded acetaminophen 500 mg tablet 500 mg PO Q6H PRN pain or fever 12/25/21 (Tylenol Extra Strength) #100 tabs ibuprofen 600 mg tablet 600 mg PO Q6H PRN pain #100 tabs 12/25/21 albuterol sulfate 90 mcg/actuation 2 puff inhalation Q ID PRN 03/16/22 aerosol inhaler shortness of breath or wheez ing #6.7 grams Allergies Allergy/AdvReac Type Severity Reaction Status Date / Time No Known Allergies (No Known Allergy Verified 08/22/25 07:34 Allergies*) Review of Systems 2 Review of Systems: Constitutional : No Fever, pos Chills ENT/Mouth : No Hoarseness, pos sore throat, No Rhinorrhea Eyes: No Redness, No Discharge, No Vision Changes Cardiovascular : pos chest pain, no dyspnea Respiratory : positive Cough, pos Sputum, positive Wheezing, Gastrointestinal : No Nausea, No Vomiting, No Diarrhea, No abdominal Pain Genitourinary : No Dysuria, No Hematuria Musculoskeletal : No joint pain, pos Myalgias Skin : No rash Neuro : No Weakness, No Numbness, No Headache Psych : No anxiety, depression Heme/Lymph: No Bruising, No Bleeding Endocrine : No Polyuria, No Polydipsia All other systems reviewed and are negative Yes all other systems are reviewed and are negative [facility] Past Medical History Attestation statement: The following information was validated with the patient. Source: old records reviewed Medical History Migraines Anemia Social History Social History Alcohol intake: current Alcohol intake frequency: does not drink Alcohol type: beer and wine Patient Tobacco Use Status: Current someday Tobacco user Substance Use Type: Marijuana Advance Directives: No Advance Directives Information Provided: No Gender identity: Female Physical Exam 2 Vital Signs: Vital Signs: Last Vital Signs Temp 98.6 F 08/22/25 07:31 Pulse 80 08/22/25 08:30 Resp 14 08/22/25 08:30 BP 105/58 L 08/22/25 07:31 Pulse Ox 100 08/22/25 07:31 O2 Del Method Room Air 08/22/25 07:31 BMI result Body Mass Index 23.6 Appearance: Alert. Oriented X3. No acute distress. Eyes: Pupils equal, round and reactive to light. ENT: Pharynx mild erythema no exudates, uvula is midline Neck: Normal inspection. Neck supple. CVS: Normal heart rate and rhythm. Pulses normal. Chest: ttp along upper sternum reproduces pain Respiratory: No respiratory distress. Breath sounds faint exp wheezes upper lobes Abdomen: Soft and nontender. uterus near belly button Skin: Skin warm and dry. Normal skin color. Normal skin turgor. Extremities: No lower extremity edema. No calf ttp Neuro: Oriented X 3. No motor deficit. No sensory deficit. CN2-12 intact Medications Administered Discontinued Medications Generic Name Dose Route Start Last Admin Trade Name Freq PRN Reason Stop Dose Admin Acetaminophen 975 mg 08/22/25 07:59 08/22/25 08:08 Acetaminophen 325 Mg Tablet PO 08/22/25 08:00 975 mg ONCE ONE Administration Prednisone 40 mg 08/22/25 07:58 08/22/25 08:08 Prednisone 20 Mg Tablet PO 08/22/25 07:59 40 mg ONCE ONE Administration Medical Decision Making Medical Decision Making [facility] Narrative: 30 yo female with PMH of asthma, anemia and migraines who is 18 weeks with her care at [facility] has had no issues she notes she is now here with viral symptoms after sick contacts being her partner. She has no OB complaints. She will need albuterol INH, po prednisone, basic labs, viral panel. I did order EKG and trop though I suspect MSK pain. She will also need ddimer though I have low susp for VTE is it more infectious. She will also need tylenol for pain. She is not toxic appearing. FHT are 140s Differential Diagnosis Differential Diagnoses: The differential diagnosis associated with the presentation includes chest wall pain, viral syndrome Admission/Observation Consideration of admission/observation: Escalation of care including admission/observation considered work up reassuring ddimer up due to but she is negative by Years algorithm. Lab Data [facility] Lab Attestation statement: I reviewed the patient's lab results. 08/22/25 07:41 08/22/25 07:41 Labs: Lab Results 08/22/25 08/22/25 08/22/25 Range/Units 07:41 07:56 08:07 WBC 9.4 (4.8-10.8) X10*3/uL RBC 3.59 L (4.20-5.50) X10*6/uL Hgb 10.7 L (12.0-16.0) g/dl Hct 31.7 L (37.0-47.0) % MCV 88.3 (80.0-98.0) fL MCH 29.8 (27.0-33.0) pg MCHC 33.8 (31.0-35.0) g/dl RDW 14.0 (11.0-16.0) % Plt Count 205 (160-400) X10*3/uL MPV 8.6 L (9.4-12.3) fL Immature Gran % (Auto) 0.3 (0.0-0.4) % Neut % (Auto) 85.4 H (45-73) % Lymph % (Auto) 9.3 L (20-40) % [place] % (Auto) 4.5 (2-11) % Eos % (Auto) 0.4 (0-4) % Baso % (Auto) 0.1 (0-2) % Lymph # (Auto) 0.9 L (1.2-4.9) X10*3/uL [place] # (Auto) 0.4 (0.1-1.2) X10*3/uL Eos # (Auto) 0.0 (0.0-0.4) X10*3/uL Baso # (Auto) 0.0 (0.0-0.2) X10*3/uL Abs Immat Gran (auto) 0.03 (0.00-0.03) X10*3/uL Absolute Neuts (auto) 8.0 (2.0-8.3) x10*3/uL Absolute Nucleated RBC 0.000 (0.0-0.012) X10*3/uL Nucleated RBC % (auto) 0.0 (0.0-0.2) /100WBC PT 11.2 (10.9-12.4) SEC INR 1.0 (0.9-1.1) D-Dimer High Sensitivty 405 NG/ML Sodium 137 (135-145) mmol/L Potassium 4.3 (3.3-5.1) mmol/L Chloride 109 H (96-108) mmol/L Carbon Dioxide 23 (22-29) mmol/L Anion Gap 9 L (12-20) BUN 7 L (9-16) mg/dL Creatinine 0.60 (0.5-1.4) mg/dL Estim Creat Clear Calc 117.3 Estimated GFR > 60 Random Glucose 103 (60-115) mg/dL Calcium 8.8 D (8.4-10.2) mg/dL Total Bilirubin 0.2 (0.0-1.0) mg/dL AST 31 (5-31) U/L ALT 26 (0-31) U/L Alkaline Phosphatase 74 (39-117) U/L Troponin I High Sens < 2.7 (<3.5-17.0) ng/L NT-Pro-B Natriuret Pep 161.5 (<300) pg/mL Total Protein 7.2 (6.5-8.0) g/dL Albumin 3.8 (3.5-5.0) g/dL COVID-19 (RIA) Negative (Negative) COVID-19 Clin Com See Note Influenza Type A (RADHA) Negative (Negative) Influenza Type B (RADHA) Negative (Negative) Influenza A & B Note See Note S. pyogenes GrpA RADHA Negative (Negative) Independent Interpretation I performed an independent interpretation of an: EKG Interpretation: Rate: 100 Rhythm: NSR [place]: normal Normal P waves. Normal SHONA. Normal QRS complex. ST T wave : no LILIA, poor tracing and artifact, T wave inversion in V1. qTC: 454 prior studies: no sig change from prior The study has been interpreted contemporaneously by me. . External Record Review External record reviewed: Outpatient record Tests considered The following testing was considered but not selected: xray but afebrile and overall not toxic appearing Discharge Plan Discharge Clinical Impression: Atypical chest pain, Acute costochondritis, Acute viral syndrome Patient Disposition: Home, Self-Care Instructions: Chest Pain (ED), Costochondritis (ED), Viral Syndrome (ED) Additional Instructions: negative for covid, flu, strep throat labs reassuring - negative tests for heart, heart failure, ekg reassuring next dose of prednisone is tomorrow it is okay to take tylenol for aches and pains call your OBGYN when you leave - the heart rate of the baby was 142 return for any worsening symptoms or concerns. use your inhaler for any wheezing - 2 puffs every 4 hours hemoglobin was 10.7 and hematocrit was 31.7 - normal for your known anemia Prescriptions: No Action albuterol sulfate 90 mcg/actuation HFA aerosol inhaler 2 puff inhalation QID PRN (Reason: shortness of breath or wheezing) Qty: 6.7 0RF Mirena 20 mcg/24 hours (7 yrs) 52 mg intrauterine device intrauterine acetaminophen [Tylenol Extra Strength] 500 mg tablet 500 mg PO Q6H PRN (Reason: pain or fever) Qty: 100 0RF ibuprofen 600 mg tablet 600 mg PO Q6H PRN (Reason: pain) Qty: 100 1RF Rx Instructions: always take w food in stomach Print Language: Montserrat[place]
[2025-08-22 08:02] LABS: Alanine Aminotransferase 26 U/L (0-31); Albumin Level 3.8 g/dL (3.5-5.0); Alkaline Phosphatase 74 U/L (39-117); Anion Gap 9 (12-20); Aspartate Amino Transferase 31 U/L (5-31); Blood Urea Nitrogen 7 mg/dL (9-16); Calcium 8.8 mg/dL (8.4-10.2); Carbon Dioxide 23 mmol/L (22-29); Chloride 109 mmol/L (96-108); Creatinine Clr Calc Pharmacy 117.3; Estimated Glomerular Filt Rate > 60; Potassium 4.3 mmol/L (3.3-5.1); Sodium 137 mmol/L (135-145); Total Protein 7.2 g/dL (6.5-8.0)
[2025-08-22 08:10] LABS: INTERNATIONAL NORM RATIO 1.0 (0.9-1.1); Prothrombin Time 11.2 SEC (10.9-12.4)
[2025-08-22 08:10] LABS: COVID-19 Test Negative (Negative); IDNOW Serial# 55D5AD1C; IDNOW Serial# 58CA691E; Influenza B2 Negative (Negative)
[2025-08-22 08:19] LABS: D Dimer High Sensitivity 405 NG/ML
[2025-08-22 08:21] LABS: NT Pro B Type Natriuretic Pept 161.5 pg/mL (<300)
[2025-08-22 08:22] LABS: Troponin-I High Sensitivity < 2.7 ng/L (<3.5-17.0)
[2025-08-22 08:30] VITALS: PULSE 80; RESP 14; O2SAT 97
[2025-08-22 08:31] LABS: IDNOW Serial# 55D5AD1C
[2025-08-22 08:32] LABS: Strep A Nucleic Acid Negative (Negative)
[2025-08-22] MEDS: Albuterol Sulfate 90 MCG 8 GM INHALER 2 PUFF INHALE (08:50)
[2025-08-22 08:58] VITALS: BP 0/0; BP 110/66; PULSE 80; RESP 14; TEMP -17.7; TEMP 0; TEMP 36.7; O2SAT 0; O2SAT 97
--- NOTE | 2025-08-22 08:58 | PC.NURSE ---
heart rate 140
== END 2025-08-22 08:59 | disposition home or self-care (01) ==
PROVIDERS: Emergency Provider Emergency Medicine; PCP Internal Medicine
DX: O26.899 Other specified pregnancy related conditions, unspecified trimester (principal); R07.9 Chest pain, unspecified; M94.0 Chondrocostal junction syndrome [Tietze]; B34.9 Viral infection, unspecified; J45.909 Unspecified asthma, uncomplicated; R05.9 Cough, unspecified; Z03.818 Encounter for observation for suspected exposure to other biological agents ruled out
CPT/HCPCS: 36415; 80053; 83880; 84484; 85025; 85379; 85610; 87502; 87635; 87651; 93005; 94640; 99284; 99285

== ENCOUNTER → 2025-08-22 07:30 | Outpatient (BNV) | payer MEDICAID, SELFPAY | PROVIDERS: Emergency Provider Emergency Medicine; PCP Internal Medicine; Visit Provider Internal Medicine Cardiovascular Disease | DX: R07.9 Chest pain, unspecified (principal) | CPT/HCPCS: 93010 ==